=== PATIENT | female | born 1955 | race Caucasian/White ===

== ENCOUNTER 2023-07-09 09:48 | Outpatient (AMB) | payer OTHER, SELFPAY ==
--- NOTE | 2023-07-09 10:06 | MHC.OFFVIS ---
Intake Vital Signs 07/09/23 10:08 Height 5 ft 10 in Weight 148 lb BMI 21.2 Intake Visit Reasons: IMMUNOCHEMIST, general muscle pain Intake Note: Joss 67 yr old right hand dominant male presents today with his daughter Regina for his right shoulder. States he is having limited ROM and his pain is constant. This is affecting his daily activities. Also has pain in bilateral knees. No injury he can recall. Hx of triple bypass February 2023, daughter states patient muscle pain started 2 months after his surgery. Patient is diabetic. States he has cardiac therapy after surgery but not for his knees or shoulder. Allergies lisinopril Allergy (Mild, Verified 07/09/23 10:13) Cough Medication List - Last Reconciled 07/09/23 by Hodan Mandujano MD aspirin 81 mg PO DAILY atorvastatin 10 mg PO BEDTIME clopidogrel 75 mg PO DAILY gabapentin 100 mg PO BEDTIME metformin 500 mg PO DAILY metoprolol tartrate 25 mg PO BID semaglutide (Ozempic) 0.25 mg subcut QWEEK HPI HPI Comments History of Present Illness Details Patient was referred from [facility]. History of coronary bypass surgery 02/19/23. Two months, around mid April, after started having bilateral shoulder pain right worse than left, and bilateral knee pain. Notes also said bilateral upper and lower extremity aches. He has been referred to Rheumatology which is pending. And then referred to physiatry for further evaluation. Per daughter, says he was walking hunched over because of the pain, he was pointing today on right shoulder and right knee. Patient denies weakness. No drastic weight loss or atrophy. Swallowing not affected. New numbness on right 3rd-5th digits, can't make fist. Denies past history of DM neuropathy. Denies numbness on his feet. Hip pain but denies groin pain. Muscles on his buttocks. Denies back pain. History of lumbar fusion 2011. Denies neck pain. Possible morning stiffness. Per records, left knee ultrasound did not show DVT, positive Zuñiga cyst. Looks like they have started him on gabapentin, 300mg daily, without relief. They've done blood work - negaetive lyme; inflammatory markers high - given oral steroid burst which helped a bit. Daughter does not remember anything else being abnormal. Denies fever prior to onse of aches. No xrays done. Right handed, needs assistance now for feeding due to pain. Can't sleep. He is accompanied today by daughter Regina who provides history and helps translation. Other past medical history - DM, not on insulin, A1c 6.8; HTN; high cholesterol. Right shoulder surgery 2009 for arthritis. But he did not have pain prior to cardiac bypass. [facility] Social History (Updated 07/09/23 @ 10:13 by AALIYAH Plaza) Current occupational status: disabled Current occupation: right hand Review of Systems Const All systems reviewed & are unremarkable except as noted in HPI and below Physical Exam Vital Signs: BMI result Body Mass Index 21.2 Constitutional: Patient appears to be in no acute distress, well nourished and well developed. Patient was appropriately conversant and oriented. Good historian. MSK: Inspection reveals appropriate head and neck positioning. No pain with palpation over the neck musculature. Cervical ROM was full. Spurling's sign negative. Bilateral shoulder, elbow and wrist ROM WNL. No ligamentous laxity or crepitance. No increased effusion. No scapular winging. No atrophy. Tenderness along the proximal biceps insertion right side. Less tenderness on left side. Positive Norris sign on the right. Positive Speed sign on the right. Negative empty can sign. Tenderness on left PIP and MCP joints. No redness or joint enlargement or swelling. No specific abnormalities or instability found on inspection and palpation of the spine and extremities. No tenderness along cervical, thoracic, lumbar spinous processes, facets are paraspinals. No tenderness on the lateral hips or knees, no swelling or redness or warmth. Tender on posterior left knee. Negative calf tenderness. Strength is 5/5 in all muscle groups tested. No increased tone noted. Neurological: Mood appears normal, good affect, and appropriate for the circumstances. Neurologic examination of the upper and lower extremities was nonfocal with intact sensation, muscle stretch reflexes and without focal motor deficits. Wright?s negative bilaterally. Babinski was down going bilaterally. Clonus was negative. Gait is non-antalgic without loss of balance. Results Reviewed Results Reviewed: I reviewed records from the following: [facility] Assessment & Plan Assessment & Plan (1) Muscle pain: Code(s): M79.10 - Myalgia, unspecified site (2) Joint pain: Code(s): M25.50 - Pain in unspecified joint (3) Numbness: Code(s): R20.0 - Anesthesia of skin (4) Zuñiga's cyst of knee: Code(s): M71.20 - Synovial cyst of popliteal space [Zuñiga], unspecified knee Plan Sudden onset widespread muscle and joint pain, 2 months after cardiac surgery. Without true weakness or muscle atrophy. Right shoulder seems to be the worse. Exam shows tenderness along bilateral biceps proximal insertion. He reports tenderness on right 3rd to 5th digits. Denies any previous history of neuropathy from diabetes. No allodynia or tenderness or hypersensitivity along previous surgical site. We will work him up for inflammatory markers and CK level. We will check her LESLIE and RF as well. Will do bilateral shoulder, hand and hip x-rays today. We will schedule him for EMG to rule out neuropathy. Will help facilitate Rheumatology referral. Continue current dose of gabapentin for now. Assessment and plan discussed with patient, and patient was agreeable. All questions were answered thoroughly. Hodan Mandujano MD, SANJEEV Board Certified, [place] Board [employer] Physical Medicine and Rehabilitation (ABPMR) Board Certified, [place] Board of Electrodiagnostic Medicine (ABEM) Orders: Orders XR shoulder RT min 2V Today M25.50 - Pain in unspecified joint, M79.10 - Myalgia, unspecified site XR knee RT 3V Today M25.50 - Pain in unspecified joint, M79.10 - Myalgia, unspecified site XR hand RT min 3V Today M25.50 - Pain in unspecified joint, M79.10 - Myalgia, unspecified site NE electromyogram (EMG) Today M25.50 - Pain in unspecified joint, M79.10 - Myalgia, unspecified site, R20.0 - Anesthesia of skin Rheumatoid Factor Today M25.50 - Pain in unspecified joint, M79.10 - Myalgia, unspecified site, R20.0 - Anesthesia of skin Erythrocyte Sedimentation Rate Today M25.50 - Pain in unspecified joint, M79.10 - Myalgia, unspecified site, R20.0 - Anesthesia of skin XR shoulder LT min 2V Today M25.50 - Pain in unspecified joint, M79.10 - Myalgia, unspecified site XR knee LT 3V Today M25.50 - Pain in unspecified joint, M79.10 - Myalgia, unspecified site XR hand LT min 3V Today M25.50 - Pain in unspecified joint, M79.10 - Myalgia, unspecified site NE nerve conduction velocity Today M25.50 - Pain in unspecified joint, M79.10 - Myalgia, unspecified site, R20.0 - Anesthesia of skin LESLIE Reflex Titer and Pattern Today M25.50 - Pain in unspecified joint, M79.10 - Myalgia, unspecified site, R20.0 - Anesthesia of skin CK, Total+Isoenzymes, Serum Today M25.50 - Pain in unspecified joint, M79.10 - Myalgia, unspecified site, R20.0 - Anesthesia of skin CRP High Sensitivity Today M25.50 - Pain in unspecified joint, M79.10 - Myalgia, unspecified site, R20.0 - Anesthesia of skin Coding Level of Care Code New Pt Level 4 (48495) Diagnoses Muscle pain M79.10 Joint pain M25.50 Numbness R20.0 Zuñiga's cyst of knee M71.20
[2023-07-09 10:08] VITALS: BMI 21.2
== END 2023-07-09 10:44 | disposition home or self-care (01) ==
PROVIDERS: Visit Provider Physical Medicine & Rehabilitation
DX: M79.10 Myalgia, unspecified site (principal); M25.50 Pain in unspecified joint; R20.0 Anesthesia of skin; M71.22 Synovial cyst of popliteal space [Baker], left knee
CPT/HCPCS: 99204

== ENCOUNTER 2023-07-09 09:48 | Outpatient (REF) | payer OTHER, SELFPAY ==
--- NOTE | ~2023-07-09 | XR_ITS ---
EXAMINATION: XR SHOULDER, BILATERAL. XR KNEE, BILATERAL. XR HAND, BILATERAL. CLINICAL INFORMATION: Polyarticular pain COMPARISON: None. TECHNIQUE: AP and lateral views of each shoulder. 3 views of each knee. 3 views of each hand. FINDINGS: Right shoulder: No fracture or malalignment. Mild glenohumeral osteoarthritis. No suspicious bone lesion or soft tissue calcification. Left shoulder: No fracture or malalignment. Moderate glenohumeral and mild acromioclavicular osteoarthritis. No suspicious bone lesion or soft tissue calcification. Right knee: No fracture. Mild medial compartment osteoarthritis. No joint effusion. Left knee: No significant joint space narrowing. Faint meniscal chondrocalcinosis. Mild patellofemoral compartment osteoarthritis. There is a moderate joint effusion. Right hand: No fracture or malalignment. 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 Mild osteoarthritis of the 1st CMC joint, the 2nd and 3rd MCP joints, and the interphalangeal joints. No periarticular osteopenia, erosions, or suspicious soft tissue calcifications. Left hand: No fracture or malalignment. 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 Mild osteoarthritis of the 1st CMC joint, the 2nd and 3rd MCP joints, and the interphalangeal joints. No periarticular osteopenia, erosions, or suspicious soft tissue calcifications. XR/XR shoulder RT min 2V IMPRESSION: No acute abnormality of the shoulders, knees, or hands. Mild to moderate degenerative findings of both shoulders and both knees as described. There is a moderate left knee joint effusion. 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
--- NOTE | ~2023-07-09 | XR_ITS ---
EXAMINATION: XR SHOULDER, BILATERAL. XR KNEE, BILATERAL. XR HAND, BILATERAL. CLINICAL INFORMATION: Polyarticular pain COMPARISON: None. TECHNIQUE: AP and lateral views of each shoulder. 3 views of each knee. 3 views of each hand. FINDINGS: Right shoulder: No fracture or malalignment. Mild glenohumeral osteoarthritis. No suspicious bone lesion or soft tissue calcification. Left shoulder: No fracture or malalignment. Moderate glenohumeral and mild acromioclavicular osteoarthritis. No suspicious bone lesion or soft tissue calcification. Right knee: No fracture. Mild medial compartment osteoarthritis. No joint effusion. Left knee: No significant joint space narrowing. Faint meniscal chondrocalcinosis. Mild patellofemoral compartment osteoarthritis. There is a moderate joint effusion. Right hand: No fracture or malalignment. 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 Mild osteoarthritis of the 1st CMC joint, the 2nd and 3rd MCP joints, and the interphalangeal joints. No periarticular osteopenia, erosions, or suspicious soft tissue calcifications. Left hand: No fracture or malalignment. 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 Mild osteoarthritis of the 1st CMC joint, the 2nd and 3rd MCP joints, and the interphalangeal joints. No periarticular osteopenia, erosions, or suspicious soft tissue calcifications. XR/XR knee LT 3V IMPRESSION: No acute abnormality of the shoulders, knees, or hands. Mild to moderate degenerative findings of both shoulders and both knees as described. There is a moderate left knee joint effusion. 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
--- NOTE | ~2023-07-09 | XR_ITS ---
EXAMINATION: XR SHOULDER, BILATERAL. XR KNEE, BILATERAL. XR HAND, BILATERAL. CLINICAL INFORMATION: Polyarticular pain COMPARISON: None. TECHNIQUE: AP and lateral views of each shoulder. 3 views of each knee. 3 views of each hand. FINDINGS: Right shoulder: No fracture or malalignment. Mild glenohumeral osteoarthritis. No suspicious bone lesion or soft tissue calcification. Left shoulder: No fracture or malalignment. Moderate glenohumeral and mild acromioclavicular osteoarthritis. No suspicious bone lesion or soft tissue calcification. Right knee: No fracture. Mild medial compartment osteoarthritis. No joint effusion. Left knee: No significant joint space narrowing. Faint meniscal chondrocalcinosis. Mild patellofemoral compartment osteoarthritis. There is a moderate joint effusion. Right hand: No fracture or malalignment. 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 Mild osteoarthritis of the 1st CMC joint, the 2nd and 3rd MCP joints, and the interphalangeal joints. No periarticular osteopenia, erosions, or suspicious soft tissue calcifications. Left hand: No fracture or malalignment. 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 Mild osteoarthritis of the 1st CMC joint, the 2nd and 3rd MCP joints, and the interphalangeal joints. No periarticular osteopenia, erosions, or suspicious soft tissue calcifications. XR/XR shoulder LT min 2V IMPRESSION: No acute abnormality of the shoulders, knees, or hands. Mild to moderate degenerative findings of both shoulders and both knees as described. There is a moderate left knee joint effusion. 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
--- NOTE | ~2023-07-09 | XR_ITS ---
EXAMINATION: XR SHOULDER, BILATERAL. XR KNEE, BILATERAL. XR HAND, BILATERAL. CLINICAL INFORMATION: Polyarticular pain COMPARISON: None. TECHNIQUE: AP and lateral views of each shoulder. 3 views of each knee. 3 views of each hand. FINDINGS: Right shoulder: No fracture or malalignment. Mild glenohumeral osteoarthritis. No suspicious bone lesion or soft tissue calcification. Left shoulder: No fracture or malalignment. Moderate glenohumeral and mild acromioclavicular osteoarthritis. No suspicious bone lesion or soft tissue calcification. Right knee: No fracture. Mild medial compartment osteoarthritis. No joint effusion. Left knee: No significant joint space narrowing. Faint meniscal chondrocalcinosis. Mild patellofemoral compartment osteoarthritis. There is a moderate joint effusion. Right hand: No fracture or malalignment. 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 Mild osteoarthritis of the 1st CMC joint, the 2nd and 3rd MCP joints, and the interphalangeal joints. No periarticular osteopenia, erosions, or suspicious soft tissue calcifications. Left hand: No fracture or malalignment. 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 Mild osteoarthritis of the 1st CMC joint, the 2nd and 3rd MCP joints, and the interphalangeal joints. No periarticular osteopenia, erosions, or suspicious soft tissue calcifications. XR/XR hand LT min 3V IMPRESSION: No acute abnormality of the shoulders, knees, or hands. Mild to moderate degenerative findings of both shoulders and both knees as described. There is a moderate left knee joint effusion. 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
--- NOTE | ~2023-07-09 | XR_ITS ---
EXAMINATION: XR SHOULDER, BILATERAL. XR KNEE, BILATERAL. XR HAND, BILATERAL. CLINICAL INFORMATION: Polyarticular pain COMPARISON: None. TECHNIQUE: AP and lateral views of each shoulder. 3 views of each knee. 3 views of each hand. FINDINGS: Right shoulder: No fracture or malalignment. Mild glenohumeral osteoarthritis. No suspicious bone lesion or soft tissue calcification. Left shoulder: No fracture or malalignment. Moderate glenohumeral and mild acromioclavicular osteoarthritis. No suspicious bone lesion or soft tissue calcification. Right knee: No fracture. Mild medial compartment osteoarthritis. No joint effusion. Left knee: No significant joint space narrowing. Faint meniscal chondrocalcinosis. Mild patellofemoral compartment osteoarthritis. There is a moderate joint effusion. Right hand: No fracture or malalignment. 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 Mild osteoarthritis of the 1st CMC joint, the 2nd and 3rd MCP joints, and the interphalangeal joints. No periarticular osteopenia, erosions, or suspicious soft tissue calcifications. Left hand: No fracture or malalignment. 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 Mild osteoarthritis of the 1st CMC joint, the 2nd and 3rd MCP joints, and the interphalangeal joints. No periarticular osteopenia, erosions, or suspicious soft tissue calcifications. XR/XR knee RT 3V IMPRESSION: No acute abnormality of the shoulders, knees, or hands. Mild to moderate degenerative findings of both shoulders and both knees as described. There is a moderate left knee joint effusion. 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
--- NOTE | ~2023-07-09 | XR_ITS ---
EXAMINATION: XR SHOULDER, BILATERAL. XR KNEE, BILATERAL. XR HAND, BILATERAL. CLINICAL INFORMATION: Polyarticular pain COMPARISON: None. TECHNIQUE: AP and lateral views of each shoulder. 3 views of each knee. 3 views of each hand. FINDINGS: Right shoulder: No fracture or malalignment. Mild glenohumeral osteoarthritis. No suspicious bone lesion or soft tissue calcification. Left shoulder: No fracture or malalignment. Moderate glenohumeral and mild acromioclavicular osteoarthritis. No suspicious bone lesion or soft tissue calcification. Right knee: No fracture. Mild medial compartment osteoarthritis. No joint effusion. Left knee: No significant joint space narrowing. Faint meniscal chondrocalcinosis. Mild patellofemoral compartment osteoarthritis. There is a moderate joint effusion. Right hand: No fracture or malalignment. 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 Mild osteoarthritis of the 1st CMC joint, the 2nd and 3rd MCP joints, and the interphalangeal joints. No periarticular osteopenia, erosions, or suspicious soft tissue calcifications. Left hand: No fracture or malalignment. 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 Mild osteoarthritis of the 1st CMC joint, the 2nd and 3rd MCP joints, and the interphalangeal joints. No periarticular osteopenia, erosions, or suspicious soft tissue calcifications. XR/XR hand RT min 3V IMPRESSION: No acute abnormality of the shoulders, knees, or hands. Mild to moderate degenerative findings of both shoulders and both knees as described. There is a moderate left knee joint effusion. 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
== END 2023-07-09 09:49 | disposition home or self-care (01) ==
LOC: HO.HOSX 09:48
PROVIDERS: Visit Provider Physical Medicine & Rehabilitation
DX: M25.50 Pain in unspecified joint (principal); M79.10 Myalgia, unspecified site; R20.0 Anesthesia of skin
CPT/HCPCS: 73030; 73130; 73562

== ENCOUNTER 2023-07-09 11:21 | Outpatient (REF) | payer OTHER, SELFPAY ==
[2023-07-09 13:48] LABS: Rheumatoid Factor < 13.0 IU/mL (<15.0)
[2023-07-09 13:58] LABS: Erythrocyte Sedimentation Rate 86 MM/HR (0-20)
[2023-07-15 09:39] LABS: CRP High Sensitivity >10.0 mg/L
[2023-07-15 12:13] LABS: ANA Titer 2 1:40 titer; Anti Nuclear Antibody Screen POSITIVE (NEGATIVE); Anti Nuclear Antibody Titer 1:40 titer
[2023-07-16 20:58] LABS: CK-BB None Detected (None Detected); CK-MB 0 % (<5); CK-MM 68 % (95-100); Creatine Kinase,Total,Serum 31 U/L (29-143)
== END 2023-07-09 11:22 | disposition home or self-care (01) ==
LOC: HO.10HDL 11:21
PROVIDERS: Visit Provider Physical Medicine & Rehabilitation
DX: M25.50 Pain in unspecified joint (principal); M79.10 Myalgia, unspecified site; R20.0 Anesthesia of skin
CPT/HCPCS: 36415; 82552; 85652; 86038; 86039; 86141; 86431

== ENCOUNTER 2023-07-15 12:57 | Outpatient (REF) | payer OTHER, SELFPAY ==
--- NOTE | 2023-07-15 13:03 | EMG_ITS ---
Chief complaint: Numbness on right 1st to 3rd digits. Right shoulder and arm pain. Please see my notes for full history. Reason for referral: Evaluate for Carpal Tunnel Syndrome versus neuropathy Procedure done: Bilateral upper extremities NCS/EMG Precautions and/or limitations: None The limb temperature was monitored continuously and remained between 32-36 degrees C during the performance of the NCS. Nerve Conduction Studies Anti Sensory Summary Table ?Stim Site NR Onset (ms) Norm Onset (ms) Peak (ms) Norm Peak (ms) O-P Amp (?V) Norm O-P Amp Site1 Site2 Delta-0 (ms) Dist (cm) Stanford (m/s) Norm Stanford (m/s) Left Median Anti Sensory (2nd Digit) Wrist ? 3.3 3.8 <3.6 21.7 >10 Wrist 2nd Digit 3.3 14.0 42 Right Median Anti Sensory (2nd Digit) Wrist ? 3.1 3.8 <3.6 14.4 >10 Wrist 2nd Digit 3.1 14.0 45 Right Radial Anti Sensory (Thumb) Forearm ? 1.6 2.2 <3.1 20.8 Forearm Thumb 1.6 0.0 Left Ulnar Anti Sensory (5th Digit) Wrist ? 1.1 3.4 <3.7 17.3 >15.0 Wrist 5th Digit 1.1 14.0 127 Right Ulnar Anti Sensory (5th Digit) Wrist ? 2.9 3.4 <3.7 7.4 >15.0 Wrist 5th Digit 2.9 14.0 48 Motor Summary Table ?Stim Site NR Onset (ms) Norm Onset (ms) O-P Amp (mV) Norm O-P Amp iAmp (mV) Amp (1st) (%) Site1 Site2 Delta-0 (ms) Dist (cm) Stanford (m/s) Norm Stanford (m/s) Left Median Motor (Abd Poll Brev) Wrist ? 4.1 <3.9 3.8 >4.5 4.7 100.0 Elbow Wrist 3.2 24.0 75 >45 Elbow ? 7.3 3.8 4.5 100.0 Right Median Motor (Abd Poll Brev) Wrist ? 3.6 <3.9 4.3 >4.5 5.0 100.0 Elbow Wrist 3.8 22.0 58 >45 Elbow ? 7.4 4.1 4.8 95.3 Left Ulnar Motor (Abd Dig Minimi) Wrist ? 2.8 <3.0 8.8 >5 11.1 100.0 B Elbow Wrist 3.5 21.0 60 >45 B Elbow ? 6.3 8.1 10.4 92.0 A Elbow B Elbow 1.7 10.0 59 >45 A Elbow ? 8.0 7.4 9.8 84.1 Right Ulnar Motor (Abd Dig Minimi) Wrist ? 3.0 <3.0 6.6 >5 8.6 100.0 B Elbow Wrist 3.5 19.0 54 >45 B Elbow ? 6.5 5.3 7.2 80.3 A Elbow B Elbow 1.7 10.0 59 >45 A Elbow ? 8.2 6.0 8.3 90.9 EMG ?Side Muscle Nerve Root Ins Act Fibs Psw Amp Dur Poly Recrt Int Pat Comment Right 1stDorInt Ulnar C8-T1 Nml Nml Nml Nml Nml 0 Nml Complete Right FlexCarRad Median C6-7 Nml Nml Nml Nml Nml 0 Nml Complete Right Biceps Musculocut C5-6 Nml Nml Nml Nml Nml 0 Nml Complete Right Triceps Radial C6-7-8 Nml Nml Nml Nml Nml 0 Nml Complete Right Deltoid Axillary C5-6 Nml Nml Nml Nml Nml 0 Nml Complete Left 1stDorInt Ulnar C8-T1 Nml Nml Nml Nml Nml 0 Nml Complete Left FlexCarRad Median C6-7 Nml Nml Nml Nml Nml 0 Nml Complete Left Biceps Musculocut C5-6 Nml Nml Nml Nml Nml 0 Nml Complete Left Triceps Radial C6-7-8 Nml Nml Nml Nml Nml 0 Nml Complete Left Deltoid Axillary C5-6 Nml Nml Nml Nml Nml 0 Nml Complete FINDINGS: Right median motor nerve showed normal distal latency, small amplitude and normal conduction velocity. Left median motor nerve showed prolonged distal latency, small amplitude and normal conduction velocity. Bilateral median sensory nerves showed prolonged peak latency. All other nerves tested were within normal. Concentric needle EMG was performed in selected muscles of the bilateral upper extremities. Study did not reveal signs of electric abnormalities as shown in the table below. IMPRESSION: 1. This is an abnormal study. 2. 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 3. There is no electrodiagnostic evidence for ulnar neuropathy, brachial plexopathy, or cervical radiculopathy. Thank you for your kind referral. Hodan Mandujano MD, SANJEEV Board Certified, [place] Board [employer] and Rehabilitation (ABPMR) Board Certified, [place] Board of Electrodiagnostic Medicine (ABEM) [address] [id number] [facility]
== END 2023-07-15 12:58 | disposition home or self-care (01) ==
LOC: HO.NEURO 12:57
PROVIDERS: Visit Provider Physical Medicine & Rehabilitation
DX: R20.0 Anesthesia of skin (principal); M25.50 Pain in unspecified joint; M79.10 Myalgia, unspecified site
CPT/HCPCS: 95886; 95911

== ENCOUNTER → 2023-07-15 13:03 | Outpatient (BNV) | payer OTHER, SELFPAY | PROVIDERS: Visit Provider Physical Medicine & Rehabilitation | DX: G56.13 Other lesions of median nerve, bilateral upper limbs (principal); G56.03 Carpal tunnel syndrome, bilateral upper limbs | CPT/HCPCS: 95886; 95911 ==

== ENCOUNTER 2023-07-16 11:22 | Outpatient (AMB) | payer OTHER, SELFPAY ==
[2023-07-16 11:32] VITALS: BMI 21.2
--- NOTE | 2023-07-16 11:32 | A.OFFVIS_ITS ---
Intake Vital Signs 07/16/23 11:32 Height 5 ft 10 in Weight 148 lb BMI 21.2 Intake Visit Reasons: O/V rt shdr injection per RB Intake Note: Joss is a 67 year old male who presets today for a right shoulder injection. Allergies lisinopril Allergy (Mild, Verified 07/16/23 11:33) Cough Medication List - Last Reconciled 07/16/23 by Hodan Mandujano MD aspirin 81 mg PO DAILY atorvastatin 10 mg PO BEDTIME clopidogrel 75 mg PO DAILY gabapentin 100 mg PO BEDTIME metformin 500 mg PO DAILY metoprolol tartrate 25 mg PO BID semaglutide (Ozempic) 0.25 mg subcut QWEEK HPI HPI Comments History of Present Illness Details Scheduled right shoulder injection today. Saw him yesterday, EMG done. Also discussed results of labs and x-rays with patient and daughter. [facility] Medical History (Updated 07/16/23 @ 11:56 by Hodan Mandujano MD) DJD of right shoulder Social History Current occupational status: disabled Current occupation: right hand Physical Exam Vital Signs: BMI result Body Mass Index 21.2 Office Procedures Joint Injection/Drain Joint Injection/Drain Details: Consent was obtained. The distal, lateral, and posterior edges of the right acromion are palpated. Area is cleansed with betadine solution. A 25 gauge needle is inserted just inferior to the posterolateral edge of the acromion. The needle is directed toward the opposite nipple. A solution containing 40 mg Kenalog and 3 ml of 2% Lidocaine is injected. Patient tolerated procedure well without complications. Post-injection instructions given. Primary Site: right shoulder Injected: 40 mg of, Kenalog, with 3 mL of and other (2% lidocaine) Coding 63821 - Large joint Procedure code (CPT) selection complete Results Reviewed Results Reviewed: 07/16/23 11:31 Lidocaine HCl 2 % MPF [Xylocaine 2 % MPF] 5 ml .ROUTE .STK-MED ONE Triamcinolone Acetonide [Kenalog-40] 40 mg .ROUTE .STK-MED ONE Assessment & Plan Assessment & Plan (1) DJD of right shoulder: Code(s): M19.011 - Primary osteoarthritis, right shoulder Qualifiers: Osteoarthritis type: primary Qualified Code(s): M19.011 - Primary osteoarthritis, right shoulder Plan: Patient tolerated procedure well. Assessment and plan discussed with patient, and patient was agreeable. All questions were answered thoroughly. Follow-up in 6 weeks. Hodan Mandujano MD, SANJEEV Board Certified, [place] [employer] and [employer] (ABPMR) Board Certified, [place] [employer] Electrodiagnostic [employer] (ABEM) Orders: Orders AMB Joint Injection/Aspiration Today M19.011 - Primary osteoarthritis, right shoulder Coding Level of Care Code Procedure Only Diagnoses Primary osteoarthritis of right shoulder M19.011 Osteoarthritis type: primary CPT Codes Coding - 23528 Large joint: 50866 - Large joint ([id number])
== END 2023-07-16 11:50 | disposition home or self-care (01) ==
PROVIDERS: Visit Provider Physical Medicine & Rehabilitation
DX: M19.011 Primary osteoarthritis, right shoulder (principal)
CPT/HCPCS: 20610

== ENCOUNTER → 2023-07-16 11:22 | Outpatient (BNVA) | payer OTHER, SELFPAY | PROVIDERS: Visit Provider Physical Medicine & Rehabilitation | DX: M19.011 Primary osteoarthritis, right shoulder (principal) | CPT/HCPCS: 20610; J3301 ==

== ENCOUNTER 2023-07-21 07:47 | Outpatient (AMB) | payer OTHER, MEDICARE, SELFPAY ==
--- NOTE | 2023-07-21 07:50 | A.OFFVIS_ITS ---
Intake Vital Signs 3 07/21/23 07:51 Height 5 ft 10 in Weight 140 lb 14.006 oz BMI 20.2 BP 110/60 Blood Pressure Location Rt brachial Position Sitting Pulse 94 Pulse Source Pulse Oximeter Temp 97.7 F Temp Source Skin Pulse Oximetry (%) 99 Oxygen Delivery Method Room Air Intake Visit Reasons: Myalgia Intake Note: New patient presents to office today with concern of myalgias. Watch Train Assembler Required: Yes Watch Train Assembler Language: Ethiopian Watch Train Assembler Name: Regina Information Interpreted: non-clinical & clinical Accompanied by: Daughter Allergies lisinopril Allergy (Mild, Verified 07/21/23 07:50) Cough Medication List - Last Reconciled 07/21/23 by Jair Knowles MD aspirin 81 mg PO DAILY atorvastatin 40 mg every other day due to joint pain orally daily; capsaicin 0.1% appl topical clopidogrel 75 mg PO DAILY fluticasone propionate 50 mcg/actuation 1 spray intranasal DAILY gabapentin 300 mg PO DAILY metformin 1,000 mg PO BID metoprolol succinate ER 12.5 mg PO BID semaglutide (Ozempic) mg subcut HPI HPI Comments 2 History of Present Illness0 Details The patient presents with his daughter who helps translate. In February the patient underwent triple bypass surgery for his coronary artery disease. That went well but in early April he developed widespread pains. These included pains in the shoulders, hands, wrists, hips, and knees. There is about 3 hours of morning stiffness and that makes it difficult to get up out of bed. He notes swelling in the fingers and the wrists. He had an ultrasound of the leg documented a right popliteal cyst. Last week he had nerve conduction studies showing bilateral moderately severe carpal tunnel syndrome. He takes acetaminophen for symptoms without much improvement. He has been advised against the use of NSAIDs by Cardiology. There was a brief course of prednisone in the summer but he does not recall if it improved things much. He did recently receive a right shoulder corticosteroid injection. After 3 days he did have some overall improvement in his shoulder and other joints but symptoms reverted back to baseline again in another 24 hours. He has had some blood work in this laboratory as well as at [place]. [facility] Medical History (Updated 07/21/23 @ 08:56 by Jair Knowles MD) Type 2 diabetes mellitus without complication Hyperlipidemia, unspecified Arthritis Carpal tunnel syndrome DJD of right shoulder Surgical History (Updated 07/21/23 @ 08:01 by CHASITY Mosqueda) S/P triple vessel bypass Family History (Updated 07/21/23 @ 08:00 by CHASITY Mosqueda) Daughter Arthritis Social History (Updated 07/21/23 @ 08:00 by CHASITY Mosqueda) Household Members: Spouse Alcohol intake: former Patient Tobacco Use Status: Former Tobacco user Current occupational status: disabled Current occupation: right hand Review of Systems Const Details: Some fatigue and low stamina. He has been losing weight ever since he was started on Ozempic for his diabetes. Relates about a 60 lb weight loss over last year. Negative for appetite change, weight change, fever, chills, malaise Eyes Details: Negative for vision change, dry eyes,headaches and dizziness ENT Details: Negative for hearing change, tinnitus, oral ulcer, nose bleeds and oral dryness. Card Details: His bypass surgery went uneventfully and his wounds have healed. Negative chest pain, edema and syncope Resp Details: Negative for SOB, cough and wheezing GI Details: Negative indigestion/heartburn, nausea, abdominal pain, bowel changes, diarrhea, constipation and bloody stool. Details: Negative for dysuria, hematuria, nocturia, decreased force/flow and genital discharge Skin/Breast Details: He was treated for years so with some injections by a concrete crusher loader operator for problems with his fingernails. This was also associated with some scaly itchy rash in the hands. The daughter says he was told it was eczema and not psoriasis. He stopped receiving them as he did not see any improvement in his fingernails. Presently there is no rash. Negative for itching, rash, hives, Raynaud's symptoms, sun sensitivity, and skin cancer Neuro Details: There is some persistent numbness he believes in the fingertips. Negative for epilepsy, palsy, stroke, changes in speech, and weakness Psych Details: Negative for anxiety, depression and stress Endo Details: The daughter says the last A1c was 6.5. He has had occasional episodes of hypoglycemia but none in recent months. Negative for polyuria and polydypsia Angelo/Lymph Details: Negative for excessive bruising or bleeding. Physical Exam Vital Signs: Last Vital Signs Temp 97.7 F 07/21/23 07:51 Pulse 94 07/21/23 07:51 BP 110/60 07/21/23 07:51 Pulse Ox 99 07/21/23 07:51 Oxygen Delivery Method Room Air 07/21/23 07:51 BMI result Body Mass Index 20.2 APPEARANCE: Patient in no acute distress EYES no redness, pupils equal and reactive to light, eyelids normal. No temporal artery tenderness, redness or swelling. EARS: External ear normal, canal clear and tympanic membrane normal. NOSE/SINUS: Airflow through both nares, no nasal discharge, no bleeding THROAT: Oral mucosa moist, no ulcerations NECK: No thyromegaly or masses, no adenopathy, trachea midline. HEART: Regulrar rhythm, S1-S2 heard, no murmurs, rubs or gallops. LUNG: Clear to percussion and auscultation ABD: Normal bowel sounds, no organomegaly, masses or tenderness. EXTREMITIES: No edema, no calf tenderness, normal peripheral pulses. NEURO: Oriented and alert x3. No focal weakness. Reflexes symmetric. Gait normal. Questionable decreased sensation over the fingertips. SKIN: No inflammatory or neoplastic lesions. Many of the fingernail seem to be atrophic or missing. There is no tenderness in the fingernails. No objective signs of Raynaud's disease. The toenails are worse with multiple subungual deposits and dystrophy of the fingernails. These are not tender. Photographs of the nails: JOINT EXAM:.?? Cervical Spine:.? Full range of motion with mild discomfort. No tenderness. Thoracic Spine:.? No scoliosis.? No tenderness on palpation. Lumbar Spine:.? Alignment normal.? Full range of motion without pain, no tenderness. Chest Wall:.? There is a well-healed sternotomy scar. No areas of tenderness. The skin is intact. No increased warmth or erythema. Hands: Right: There is mild swelling and tenderness of the 1st 3 MCPs. There is no triggering. I do not detect sensory loss or thenar atrophy. There is slight tenderness at the base of the thumb without swelling. There is nontender bony enlargement at the thumb IP in all the PIP joints.? Left: There is tenderness and maybe some slight swelling at the 2nd 3rd MCP joints. There is nontender bony enlargement at the thumb IP in all the PIP joints. There is no thenar atrophy. There may be some decreased sensation of the 2nd and 3rd fingertips. No flexor tendon trigger Wrists: Right: There is mild pain with flexion extension at 45 degrees. There is soft tissue swelling and mild to moderate tenderness without redness or warmth. Left: Mild pain with flexion extension at 60 degrees. There is some slight swelling and mild to moderate tenderness without redness or warmth. Elbows:. Normal range of motion with slight pains at the extremes of normal flexion or extension. There is slight tenderness over the joint space without swelling, increased warmth or erythema. Shoulders:.? Right: Moderate pain with abduction at 60 degrees. He is limited in abduction to about 75-80 degrees. There is [id number] tenderness anteriorly, posteriorly, and in the subacromial region. There is no swelling or adenopathy. Left: Mild pain with abduction 150 degrees or with extremes of normal internal or external rotation. Mild anterior and posterior tenderness without swelling, weakness or adenopathy. Hips: Right: Slight buttock pain with extremes of normal internal or external rotation. No groin pain with motion. Left: There is mild lateral and buttock pain with abduction at 15 degrees or any degree of internal external rotation. No groin pain with motion. Hip bursa:.? Mild left trochanteric tenderness. Knees:.??Right: There is slight patellofemoral crepitus and mild pain with extremes of full extension. There is some mild medial tenderness and popliteal fullness with slight popliteal tenderness. No effusion anteriorly, no redness or warmth. Left: Mild patellofemoral crepitus and pain with full extension. There is minimal medial tenderness without redness or effusion. Ankles:.? Normal pain-free range of motion without tenderness, swelling, increased warmth or erythema. Feet:.? Normal pain-free range of motion without tenderness, swelling, increased warmth or erythema. Tender points:.? No tenderness to digital palpation at the occiput, trapezius, second rib, lateral epicondyle, knees, greater trochanter and gluteal area bilaterally. ? Results Reviewed Results Reviewed: Laboratory Tests 07/09/23 11:30 ESR 86 H Total Creatine Kinase 31 CK-MM (CK-3) 68 L C-React Prot High Sens >10.0 H LESLIE Titer 1:40 H Lab work from [place]: May 18: ESR 61, creatinine 0.84, transaminases normal, uric acid 4.4, Lyme disease antibody negative, rheumatoid factor negative, LESLIE negative. 06/04/2023: Babesia antibodies negative, Ehrlichia antibodies negative, HGE antibodies negative [facility] [address] [place] [address] Drive [address] [place] [address] XRay Report Signed Patient: Joss Bernard MR#: [id number] : 1955 Acct:[id number] Age/Sex: 67 / F ADM Date: 07/09/[address]: Hodna Mandujano MD Ordering Physician: Hodan Culp Date of Service: 07/09/23 Procedure(s): XR shoulder RT min 2V Accession Number(s): [id number] cc: Physician,Unknown ; Hodan Car EXAMINATION: XR SHOULDER, BILATERAL. XR KNEE, BILATERAL. XR HAND, BILATERAL. CLINICAL INFORMATION: Polyarticular pain COMPARISON: None. TECHNIQUE: AP and lateral views of each shoulder. 3 views of each knee. 3 views of each hand. FINDINGS: Right shoulder: No fracture or malalignment. Mild glenohumeral osteoarthritis. No suspicious bone lesion or soft tissue calcification. Left shoulder: No fracture or malalignment. Moderate glenohumeral and mild acromioclavicular osteoarthritis. No suspicious bone lesion or soft tissue calcification. Right knee: No fracture. Mild medial compartment osteoarthritis. No joint effusion. Left knee: No significant joint space narrowing. Faint meniscal chondrocalcinosis. Mild patellofemoral compartment osteoarthritis. There is a moderate joint effusion. Right hand: No fracture or malalignment. 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 Mild osteoarthritis of the 1st CMC joint, the 2nd and 3rd MCP joints, and the interphalangeal joints. No periarticular osteopenia, erosions, or suspicious soft tissue calcifications. Left hand: No fracture or malalignment. 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 Mild osteoarthritis of the 1st CMC joint, the 2nd and 3rd MCP joints, and the interphalangeal joints. No periarticular osteopenia, erosions, or suspicious soft tissue calcifications. XR/XR shoulder RT min 2V IMPRESSION: No acute abnormality of the shoulders, knees, or hands. Mild to moderate degenerative findings of both shoulders and both knees as described. There is a moderate left knee joint effusion. 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 Dictated By: Hema Bryant MD Assessment & Plan Assessment & Plan (1) Joint pain: Code(s): M25.50 - Pain in unspecified joint (2) Wrist pain, chronic: Code(s): M25.539 - Pain in unspecified wrist; G89.29 - Other chronic pain (3) Bilateral hand pain: Code(s): M79.641 - Pain in right hand; M79.642 - Pain in left hand (4) Hip pain, bilateral: Code(s): M25.551 - Pain in right hip; M25.552 - Pain in left hip (5) LESLIE positive: Code(s): R76.8 - Other specified abnormal immunological findings in serum (6) Inflammatory arthritis: Code(s): M19.90 - Unspecified osteoarthritis, unspecified site Plan The patient has a relatively symmetric inflammatory arthritis involving the hands, shoulders, wrists, and knees. The the carpal tunnel symptoms are likely secondary to his synovitis at the wrists. Similarly the Zuñiga cyst in the right knee is likely due to synovitis in the right knee. The rheumatoid factor is negative. The LESLIE was positive at our lab but negative at [place]. Uric acid and Lyme disease antibodies were negative. This looks like early rheumatoid arthritis. The nail disease could be due to psoriasis but the changes are somewhat atypical and I do not see any psoriasis. I am going to check CCP antibody and recheck his inflammatory markers, Lyme antibody, the CBC, Chem panel, hepatitis serologies and TB testing. I will also check anti DNA and anti VESTA since he has a positive LESLIE. We will start him on some prednisone at 10 b.i.d. for a week and then 5 b.i.d. after that. He will call us if symptoms are not tolerable at the lower dose of prednisone. We would aim to add a DMARD at some point in the next week or 2. We will have him back in 2 weeks to discuss that. Orders: Orders 2 Comprehensive Met. Panel Today M79.641 - Pain in right hand, M79.642 - Pain in left hand Erythrocyte Sedimentation Rate Today M79.641 - Pain in right hand, M79.642 - Pain in left hand Cyclic Citrullinated Peptide Today M79.641 - Pain in right hand, M79.642 - Pain in left hand Hepatitis A,B,C Profile Today Z79.899 - Other hearing healthcare practitioner (current) drug therapy Anti Extractable Nuclear Ag Today R76.8 - Other specified abnormal immunological findings in serum Complete Blood Count Auto Diff Today M79.641 - Pain in right hand, M79.642 - Pain in left hand C Reactive Protein Today M79.641 - Pain in right hand, M79.642 - Pain in left hand Creatine Kinase Total Today M79.641 - Pain in right hand, M79.642 - Pain in left hand Protein Creatinine Ratio, Ur Today M79.641 - Pain in right hand, M79.642 - Pain in left hand Lyme IgG/IgM w/reflex to WB Today M79.641 - Pain in right hand, M79.642 - Pain in left hand T Spot TB Today Z79.899 - Other intermediate (current) drug therapy Anti DNA DS Antibody Today R76.8 - Other specified abnormal immunological findings in serum Medications: New 2 prednisone two tab twice a day for a week, the one tab twice a day 75 tabs 2RF M19.90 - Unspecified osteoarthritis, unspecified site Coding Level of Care Code New Pt Level 4 (92914) Diagnoses Joint pain M25.50 Wrist pain, chronic M25.539; G89.29 Bilateral hand pain M79.641; M79.642 Hip pain, bilateral M25.551; M25.552 LESLIE positive R76.8 Inflammatory arthritis M19.90
[2023-07-21 07:51] VITALS: BP 110/60; PULSE 94; TEMP 36.5; O2SAT 99; BMI 20.2
== END 2023-07-21 09:00 | disposition home or self-care (01) ==
PROVIDERS: Visit Provider Internal Medicine Rheumatology
DX: M25.50 Pain in unspecified joint (principal); M25.539 Pain in unspecified wrist; G89.29 Other chronic pain; M79.641 Pain in right hand; M79.642 Pain in left hand; M25.551 Pain in right hip; M25.552 Pain in left hip; R76.8 Other specified abnormal immunological findings in serum; M19.90 Unspecified osteoarthritis, unspecified site
CPT/HCPCS: 99204

== ENCOUNTER → 2023-07-21 07:47 | Outpatient (BNVA) | payer OTHER, MEDICARE, SELFPAY | PROVIDERS: Visit Provider Internal Medicine Rheumatology ==

== ENCOUNTER 2023-07-21 09:24 | Outpatient (REF) | payer OTHER, MEDICARE, SELFPAY ==
[2023-07-21 11:03] LABS: Creatinine Urine 202.93 mg/dL; Protein/Creatinine Ratio, Ur 0.07 (<0.2); Total Protein Urine Random 15 mg/dL (<12)
[2023-07-21 11:03] LABS: MANUAL DIFF FLAG NO
[2023-07-21 11:04] LABS: Basophils Percent Auto 0.4 % (0-2); Eosinophils Absolute Auto 0.1 X10*3/uL (0.0-0.4); Eosinophils Percent Auto 1.2 % (0-4); Hematocrit 38.1 % (42.0-52.0); Hemoglobin 12.2 g/dl (14.0-18.0); Imm Gran Abs Auto 0.06 X10*3/uL (0.00-0.03); Imm Gran Pct Auto 0.6 % (0.0-0.4); Lymphocytes Absolute Auto 1.1 X10*3/uL (1.2-4.9); Lymphocytes Percent Auto 11.6 % (20-40); Mean Corpuscular Volume 78.1 fL (80.0-98.0); Mean Platelet Volume 10.3 fL (9.4-12.4); Monocytes Absolute Auto 0.9 X10*3/uL (0.1-1.2); Neutrophils Absolute Auto 7.3 x10*3/uL (2.0-8.3); Neutrophils Percent Auto 77.2 % (45-73); Platelet Count 319 X10*3/uL (160-400); Red Blood Count 4.88 X10*6/uL (4.60-5.80); Red Cell Distribution Width 15.9 % (11.0-16.0); White Blood Count 9.5 X10*3/uL (4.8-10.8)
[2023-07-21 11:42] LABS: Alanine Aminotransferase 18 U/L (0-40); Alkaline Phosphatase 66 U/L (39-117); Anion Gap 15 (12-20); Aspartate Amino Transferase 15 U/L (5-37); Bilirubin Total 0.3 mg/dL (0.0-1.0); Blood Urea Nitrogen 18 mg/dL (9-16); C Reactive Protein 1.52 mg/dL (< or = 0.50); Calcium 10.6 mg/dL (8.4-10.2); Carbon Dioxide 24 mmol/L (22-29); Chloride 99 mmol/L (96-108); Estimated Glomerular Filt Rate > 60; Glucose Random 126 mg/dL (60-115); Potassium 4.3 mmol/L (3.3-5.1); Sodium 134 mmol/L (135-145); Total Protein 7.7 g/dL (6.5-8.0)
[2023-07-21 12:00] LABS: Erythrocyte Sedimentation Rate 70 MM/HR (0-15); HBS Num1 > 1000.00 mIU/mL (0-7.99); HBc Num1 6.52 S/CO (0.00-0.79); HBsAGNum1 0.35 S/CO (0.00-0.99); Hepatitis A Antibody IgM 0.37 Index (0-0.79); Hepatitis B Surface Antigen Negative (Negative); ~HepC Num1 0.13 S/CO (0.00-0.79); ~Hepatitis A Antibody IgM Nonreactive (Nonreactive); ~Hepatitis B Surface Antibody REACTIVE (Nonreactive); ~Hepatitis C Antibody Nonreactive (Nonreactive)
[2023-07-21 13:40] LABS: HBc Num3 6.79 S/CO; Hepatitis B Core Antibody Reactive (Nonreactive)
[2023-07-23 05:43] LABS: Lyme Abs Screen <0.90 index
[2023-07-23 15:42] LABS: Cyclic Citrullinated Peptide <16 UNITS
[2023-07-23 17:04] LABS: TS Negative Control Passed; TS Panel A 0; TS Panel B 0; TS Positive Control Passed; TSpotTB Negative (Negative)
[2023-07-23 17:59] LABS: Anti DNA DS Antibody <1 IU/mL; SM/Ribonucleoprotein Ab <1.0 NEG AI (<1.0 NEG); Smith Protein <1.0 NEG AI (<1.0 NEG)
== END 2023-07-21 09:25 | disposition home or self-care (01) ==
LOC: HO.10HDL 09:24
PROVIDERS: Visit Provider Internal Medicine Rheumatology
DX: R76.8 Other specified abnormal immunological findings in serum (principal); M79.641 Pain in right hand; M79.642 Pain in left hand; Z79.899 Other long term (current) drug therapy
CPT/HCPCS: 36415; 80053; 82550; 82570; 84156; 85025; 85652; 86140; 86200; 86225; 86235; 86481; 86617; 86618; 86704; 86706; 86709; 86803; 87340

== ENCOUNTER 2023-08-13 09:30 | Outpatient (AMB) | payer OTHER, MEDICARE, SELFPAY ==
[2023-08-13 09:32] VITALS: BP 108/70; PULSE 75; TEMP 36.7; O2SAT 97; BMI 21.1
--- NOTE | 2023-08-13 09:32 | MHC.OFFVIS ---
Intake Vital Signs 08/13/23 09:32 Height 5 ft 10 in Weight 147 lb 4.301 oz BMI 21.1 BP 108/70 Blood Pressure Location Lt brachial Position Sitting Pulse 75 Pulse Source Pulse Oximeter Temp 98.1 F Temp Source Skin Pulse Oximetry (%) 97 Oxygen Delivery Method Room Air Intake Visit Reasons: ra Intake Note: Patient presents today to discuss adding DMARD. Reports taking prednisone 5 BID which has not been as effective for the last week. 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 Accompanied by: Daughter Allergies lisinopril Allergy (Mild, Verified 07/21/23 07:50) Cough Medication List - Last Reconciled 08/13/23 by Jair Knowles MD aspirin 81 mg PO DAILY atorvastatin 40 mg every other day due to joint pain orally daily; capsaicin 0.1% appl topical clopidogrel 75 mg PO DAILY fluticasone propionate 50 mcg/actuation 1 spray intranasal DAILY gabapentin 300 mg PO DAILY metformin 1,000 mg PO BID metoprolol succinate ER 12.5 mg PO BID prednisone 5 mg PO BID semaglutide (Ozempic) mg subcut HPI HPI Comments History of Present Illness Details The patient returns for evaluation of his rheumatoid arthritis. He remains on prednisone 5 mg twice a day. His daughter translates for us during today's visit. The patient did have significant improvement at 10 mg b.i.d. prednisone although some of his symptoms have started to come back in the last week at 5 mg b.i.d.. The patient has pain across the MCP and PIP regions and the right greater than the left shoulder. He notes a blood sugars a bit higher, up to 140 on a fasting basis. [facility] Medical History (Updated 08/13/23 @ 16:14 by Jair Knowles MD) Type 2 diabetes mellitus without complication Hyperlipidemia, unspecified Arthritis Carpal tunnel syndrome DJD of right shoulder Surgical History S/P triple vessel bypass Family History Daughter Arthritis 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 Const Details: Negative for appetite change, weight change, fever, chills, malaise and fatigue Eyes Details: Occasional blurred vision. Negative for dry eyes,headaches and dizziness Card Details: Negative chest pain, edema and syncope Resp Details: Negative for SOB, cough and wheezing GI Details: Negative indigestion/heartburn, nausea, abdominal pain, bowel changes, diarrhea, constipation and bloody stool. Details: Negative for dysuria, hematuria, nocturia, decreased force/flow and genital discharge Skin/Breast Details: Negative for itching, rash, hives, Raynaud's symptoms, sun sensitivity, and skin cancer Endo Details: Fasting sugar running in the 140s. Negative for polyuria and polydypsia Angelo/Lymph Details: Negative for excessive bruising or bleeding. Physical Exam Vital Signs: Last Vital Signs Temp 98.1 F 08/13/23 09:32 Pulse 75 08/13/23 09:32 BP 108/70 08/13/23 09:32 Pulse Ox 97 08/13/23 09:32 Oxygen Delivery Method Room Air 08/13/23 09:32 BMI result Body Mass Index 21.1 APPEARANCE: Patient in no acute distress EYES no redness, pupils equal and reactive to light, eyelids normal Cervical Spine:.? Full range of motion with mild discomfort. No tenderness. Thoracic Spine:.? No scoliosis.? No tenderness on palpation. Lumbar Spine:.? Alignment normal.? Full range of motion without pain, no tenderness. Chest Wall:.? There is a well-healed sternotomy scar. No areas of tenderness. The skin is intact. No increased warmth or erythema. Hands: Right: There is mild swelling and tenderness of the 1st 3 MCPs. There is no triggering. I do not detect sensory loss or thenar atrophy. There is slight tenderness at the base of the thumb without swelling. There is nontender bony enlargement at the thumb IP. There is some bony enlargement and mild tenderness at the 2nd 3rd PIP joints.? Left: There is mild swelling at the 1st 3 MCP joints and the 1st has slight tenderness. There is nontender bony enlargement at the thumb IP and in all the PIP joints. There is no thenar atrophy. There may be some decreased sensation of the 2nd and 3rd fingertips. No flexor tendon trigger Wrists: Right: There is no pain with flexion extension at 75 degrees. There is no swelling or tenderness. Left: Mild pain with flexion extension at 75 degrees. There is some slight swelling and mild tenderness without redness or warmth. Elbows:. Normal range of motion with no pain at the extremes of normal flexion or extension. There is slight tenderness over the joint space without swelling, increased warmth or erythema. Shoulders:.? Right: Mild to moderate pain with abduction at 135 degrees. There is similar discomfort with extremes of internal or external rotation with mild anterior and posterior tenderness. There is no swelling or adenopathy Left: Mild for discomfort with extremes of range of motion with some minimal anterior tenderness. No swelling, weakness or adenopathy. Hips: Right: Slight buttock pain with extremes of normal internal or external rotation. No groin pain with motion. Left: There is mild lateral and buttock pain with abduction at 15 degrees or any degree of internal external rotation. No groin pain with motion. Hip bursa:.? Mild left trochanteric tenderness. Knees:.??Right: There is slight patellofemoral crepitus and no pain with extremes of full extension. There is some mild medial tenderness and popliteal fullness with slight popliteal tenderness. No effusion anteriorly, no redness or warmth. Left: Mild patellofemoral crepitus and no pain with extremes of motion. There is no tenderness, redness or effusion. Ankles:.? Normal pain-free range of motion without tenderness, swelling, increased warmth or erythema. Feet:.? Normal pain-free range of motion without tenderness, swelling, increased warmth or erythema. Tender points: No tenderness to digital palpation at the occiput, trapezius, second rib, lateral epicondyle, knees, greater trochanter and gluteal area bilaterally. ? 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 However on exam there is still a handful of swollen and tender joints. I think he certainly needs to go on a DMARD. The blood work looked good with respect LFTs, hepatitis serologies and T spot testing. So therefore I think we should put on methotrexate 15 mg weekly. This will be with folic acid 1 mg daily. He probably could be a bit more comfortable with more prednisone but given the rise in the blood sugar I am reluctant to add any more prednisone unless we really need to. I reviewed with him the RA diagnosis and gave some some information on met rheumatoid arthritis and methotrexate to review. We discussed the methotrexate side effects and ask him to call us with any questions or problems. He was told that the drug could take months to work but that we needed to get going with the both to improve his symptoms in the short term and to avoid potential joint destruction in the future. Questions were answered. I will see him back in about fiber 6 weeks. We will ask him to get lab work before that visit to monitor his methotrexate. 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) drug therapy Complete Blood Count Auto Diff Today M06.00 - Rheumatoid arthritis without rheumatoid factor, unspecified site, Z79.899 - Other intermodal owner operator truck driver (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) drug therapy Creatinine Today M06.00 - Rheumatoid arthritis without rheumatoid factor, unspecified site, Z79.899 - Other intermodal owner operator truck driver (current) drug therapy Medications: New prednisone 5 mg PO BID 60 tabs 2RF M19.90 - Unspecified osteoarthritis, unspecified site folic acid 1 mg PO DAILY 30 tabs 6RF M06.00 - Rheumatoid arthritis without rheumatoid factor, unspecified site methotrexate sodium 15 mg (6 x 2.5 mg) PO QWEEK 24 tabs 2RF M06.00 - Rheumatoid arthritis without rheumatoid factor, unspecified site Coding Level of Care Code Est Pt Level 4 (79801) Diagnoses [facility] use of drug Z79.899 Seronegative rheumatoid arthritis M06.00
== END 2023-08-13 10:42 | disposition home or self-care (01) ==
PROVIDERS: Visit Provider Internal Medicine Rheumatology
DX: Z79.899 Other long term (current) drug therapy (principal); M06.00 Rheumatoid arthritis without rheumatoid factor, unspecified site
CPT/HCPCS: 99214

== ENCOUNTER → 2023-08-13 09:30 | Outpatient (BNVA) | payer OTHER, MEDICARE, SELFPAY | PROVIDERS: Visit Provider Internal Medicine Rheumatology | DX: M06.00 Rheumatoid arthritis without rheumatoid factor, unspecified site (principal); Z79.899 Other long term (current) drug therapy | CPT/HCPCS: 99212 ==

== ENCOUNTER 2023-08-27 10:07 | Outpatient (AMB) | payer OTHER, SELFPAY ==
--- NOTE | 2023-08-27 10:14 | A.OFFVIS_ITS ---
Intake Vital Signs 08/27/23 10:17 Height 5 ft 10 in Weight 147 lb BMI 21.1 Intake Visit Reasons: 6 weeks f/up/rt shdr Intake Note: Joss 68 yr old male presents today s/p right shoulder injection from 07/16/23. States injection help relief his pain. States at times he feels grinding in his shoulder and shoulder blades. States his ROM has improved. Allergies lisinopril Allergy (Mild, Verified 08/27/23 10:17) Cough HPI HPI Comments History of Present Illness Details Patient was referred from [facility]. History of coronary bypass surgery 02/19/23. Two months, around mid April, after started having bilateral shoulder pain right worse than left, and bilateral knee pain. Notes also said bilateral upper and lower extremity aches. He has been referred to Rheumatology which is pending. And then referred to physiatry for further evaluation. Per daughter, says he was walking hunched over because of the pain, he was pointing today on right shoulder and right knee. Patient denies weakness. No drastic weight loss or atrophy. Swallowing not affected. New numbness on right 3rd-5th digits, can't make fist. Denies past history of DM neuropathy. Denies numbness on his feet. Hip pain but denies groin pain. Muscles on his buttocks. Denies back pain. History of lumbar fusion 2011. Denies neck pain. Possible morning stiffness. Per records, left knee ultrasound did not show DVT, positive Zuñiga cyst. Looks like they have started him on gabapentin, 300mg daily, without relief. They've done blood work - negaetive lyme; inflammatory markers high - given oral steroid burst which helped a bit. Daughter does not remember anything else being abnormal. Denies fever prior to onse of aches. No xrays done. Right handed, needs assistance now for feeding due to pain. Can't sleep. He was accompanied today by daughter Regina who provided history and help with translation. Other past medical history - DM, not on insulin, A1c 6.8; HTN; high cholesterol. Right shoulder surgery 2009 for arthritis. But he did not have pain prior to cardiac bypass. Since I last saw him, he has been seen by Rheumatology Dr. Knowles: Seronegative rheumatoid arthritis with some improvement with the addition of the prednisone. However on exam there is still a handful of swollen and tender joints. I think he certainly needs to go on a DMARD. The blood work looked good with respect LFTs, hepatitis serologies and T spot testing. So therefore I think we should put on methotrexate 15 mg weekly. This will be with folic acid 1 mg daily. He probably could be a bit more comfortable with more prednisone but given the rise in the blood sugar I am reluctant to add any more prednisone unless we really need to. Daughter reports he feels better overall with medications. But blood sugar has increased with prednisone, making his vision blurry. Shoulder right injection done by me 07/16/23 -did not check if blood sugar was high after. Helped but feels bone and bone grinding. ROM is improved. EMG done by me: IMPRESSION: 1. This is an abnormal study. 2. 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 3. There is no electrodiagnostic evidenc e for ulnar neuropathy, brachial plexopathy, or cervical radiculopathy. Says hands are stiff but denies numbness. 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 Patient was appropriately conversant and oriented. Good historian. MSK: Inspection reveals appropriate head and neck positioning. Cervical ROM was full. Spurling's sign negative. Bilateral shoulder, elbow and wrist ROM WNL. No ligamentous laxity or crepitance. No increased effusion. No scapular winging. No atrophy. No subacromial tenderness. No intrinsic hand weakness. Right APB slighly flat. Strength is 5/5 in all muscle groups tested. No increased tone noted. Neurological: Mood appears normal, good affect, and appropriate for the circumstances. Neurologic examination of the upper and lower extremities was nonfocal with intact sensation, muscle stretch reflexes and without focal motor deficits. Wright?s negative bilaterally. Gait is non-antalgic without loss of balance. Results Reviewed Results Reviewed: EMG IMPRESSION: 1. This is an abnormal study. 2. 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 3. There is no electrodiagnostic evidence for ulnar neuropathy, brachial plexopathy, or cervical radiculopathy. Assessment & Plan Assessment & Plan (1) Seronegative rheumatoid arthritis: Code(s): M06.00 - Rheumatoid arthritis without rheumatoid factor, unspecified site Plan: Continue to follow with Rheumatology. Suggested to daughter to inform them of blood sugars being high and blurry vision related to taking prednisone. (2) Carpal tunnel syndrome: Code(s): G56.00 - Carpal tunnel syndrome, unspecified upper limb Qualifiers: Laterality: bilateral Qualified Code(s): G56.03 - Carpal tunnel syndrome, bilateral upper limbs Plan: As for CTS, I do not recommend pursuing surgery yet with everything going on. He denies any numbness now and does not want surgery anyway. Call if numbness recur. Plan Assessment and plan discussed with patient, and patient was agreeable. All questions were answered thoroughly. Total of 30 spent today including chart review, results review, history taking, physical examination, discussion of assessment and plan, and coordination of care. Hodan Mandujano MD, SANJEEV Board Certified, [place] Board of Physical Medicine and Rehabilitation (ABPMR) Board Certified, [place] Board of Electrodiagnostic Medicine (ABEM) CC: Dr. Knowles Coding Level of Care Code Est Pt Level 4 (06052) Diagnoses Seronegative rheumatoid arthritis M06.00 Bilateral carpal tunnel syndrome G56.03 Laterality: bilateral
[2023-08-27 10:17] VITALS: BMI 21.1
== END 2023-08-27 10:42 | disposition home or self-care (01) ==
PROVIDERS: Visit Provider Physical Medicine & Rehabilitation
DX: M06.00 Rheumatoid arthritis without rheumatoid factor, unspecified site (principal); G56.03 Carpal tunnel syndrome, bilateral upper limbs
CPT/HCPCS: 99214

== ENCOUNTER → 2023-08-27 10:07 | Outpatient (BNVA) | payer OTHER, SELFPAY | PROVIDERS: Visit Provider Physical Medicine & Rehabilitation | DX: M06.00 Rheumatoid arthritis without rheumatoid factor, unspecified site (principal); G56.03 Carpal tunnel syndrome, bilateral upper limbs | CPT/HCPCS: 99212 ==

== ENCOUNTER 2023-09-08 09:33 | Outpatient (REF) | payer OTHER, SELFPAY ==
[2023-09-08 10:32] LABS: MANUAL DIFF FLAG NO
[2023-09-08 10:40] LABS: Basophils Percent Auto 0.5 % (0-2); Eosinophils Absolute Auto 0.2 X10*3/uL (0.0-0.4); Eosinophils Percent Auto 2.8 % (0-4); Hematocrit 39.7 % (42.0-52.0); Hemoglobin 12.6 g/dl (14.0-18.0); Imm Gran Abs Auto 0.04 X10*3/uL (0.00-0.03); Imm Gran Pct Auto 0.7 % (0.0-0.4); Lymphocytes Absolute Auto 1.3 X10*3/uL (1.2-4.9); Lymphocytes Percent Auto 21.2 % (20-40); Mean Corpuscular HGB Conc 31.7 g/dl (31.0-36.0); Mean Corpuscular Hemoglobin 27.3 pg (27.0-33.0); Mean Corpuscular Volume 86.1 fL (80.0-98.0); Mean Platelet Volume 11.4 fL (9.4-12.4); Monocytes Absolute Auto 0.5 X10*3/uL (0.1-1.2); Monocytes Percent Auto 7.7 % (2-11); Neutrophils Percent Auto 67.1 % (45-73); Platelet Count 174 X10*3/uL (160-400); Red Blood Count 4.61 X10*6/uL (4.60-5.80); Red Cell Distribution Width 19.5 % (11.0-16.0)
[2023-09-08 10:50] LABS: Alanine Aminotransferase 18 U/L (0-40); Aspartate Amino Transferase 16 U/L (5-37); C Reactive Protein 0.15 mg/dL (< or = 0.50); Estimated Glomerular Filt Rate > 60
[2023-09-08 11:21] LABS: Erythrocyte Sedimentation Rate 11 MM/HR (0-15)
== END 2023-09-08 09:34 | disposition home or self-care (01) ==
LOC: HO.10HDL 09:33
PROVIDERS: Visit Provider Internal Medicine Rheumatology
DX: M06.00 Rheumatoid arthritis without rheumatoid factor, unspecified site (principal); Z79.899 Other long term (current) drug therapy
CPT/HCPCS: 36415; 82565; 84450; 84460; 85025; 85652; 86140

== ENCOUNTER 2023-09-17 09:29 | Outpatient (AMB) | payer OTHER, MEDICARE, SELFPAY ==
--- NOTE | 2023-09-17 09:38 | MHC.OFFVIS ---
Intake Vital Signs 09/17/23 09:39 Height 5 ft 10 in Weight 154 lb 15.759 oz BMI 22.2 BP 108/52 L Blood Pressure Location Lt brachial Position Sitting Pulse 99 Pulse Source Pulse Oximeter Temp 97.4 F Temp Source Skin Pulse Oximetry (%) 98 Oxygen Delivery Method Room Air Intake Visit Reasons: ra Intake Note: Patient presents today to follow up on test results and RA. Reports starting MTX. 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 He has rheumatoid arthritis currently on prednisone 5 mg the morning and 2.5 mg in the evening, methotrexate 15 mg once a week, and folic acid 1 mg daily. He says symptoms have improved considerably. He gets occasional discomfort and stiffness in the right hand across the MCP joints but overall his symptoms are much better. We had reduced his prednisone dose about 10 days ago without any worsening of symptoms. He still has some blurriness in the eyes but has not seen an eye doctor yet. He brings in a list of his blood sugars from the mornings. These range from around 100 to about 150. 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 Negative for dry eyes,headaches and dizziness ENT Details: Negative for hearing change, tinnitus, oral ulcer, nose bleeds and oral dryness. Card Details: Negative chest pain, edema and syncope Resp Details: Negative for SOB, cough and wheezing GI Details: Negative indigestion/heartburn, nausea, abdominal pain, bowel changes, diarrhea, constipation and bloody stool. Details: Negative for dysuria, hematuria, nocturia, decreased force/flow and genital discharge Skin/Breast Details: Negative for itching, rash, hives, Raynaud's symptoms, sun sensitivity, and skin cancer Neuro Details: Negative for epilepsy, palsy, stroke, changes in speech, tingling and weakness Psych Details: Negative for anxiety, depression and stress Endo Details: Negative for polyuria and polydypsia Angelo/Lymph Details: Negative for excessive bruising or bleeding. Physical Exam Vital Signs: Last Vital Signs Temp 97.4 F 09/17/23 09:39 Pulse 99 09/17/23 09:39 BP 108/52 L 09/17/23 09:39 Pulse Ox 98 09/17/23 09:39 Oxygen Delivery Method Room Air 09/17/23 09:39 BMI result Body Mass Index 22.2 APPEARANCE: Patient in no acute distress EYES no redness, pupils equal and reactive to light, eyelids normal Cervical Spine:.? Full range of motion with mild discomfort. No tenderness. Thoracic Spine:.? No scoliosis.? No tenderness on palpation. Lumbar Spine:.? Alignment normal.? Full range of motion without pain, no tenderness. Chest Wall:.? There is a well-healed sternotomy scar. No areas of tenderness. The skin is intact. No increased warmth or erythema. Hands: Right: There is mild swelling without tenderness of the 2nd and 3rd MCP joints.. There is no triggering. I do not detect sensory loss or thenar atrophy. There is slight tenderness at the base of the thumb without swelling. There is nontender bony enlargement at the thumb IP. There is some bony enlargement without tenderness at the 2nd and 3rd PIP joints.? Left: There is mild swelling without tenderness at the 1st 3 MCP joint. The other MCPs do not have any swelling and tenderness. There is nontender bony enlargement at the thumb IP and in all the PIP joints. There is no thenar atrophy. There may be some decreased sensation of the 2nd and 3rd fingertips. No flexor tendon trigger Wrists: Right: There is no pain with flexion extension at 75 degrees. There is no swelling or tenderness. Left: no pain with flexion extension at 75 degrees. There is no swelling, tenderness or warmth. Elbows:. Normal range of motion with no pain at the extremes of normal flexion or extension. There is no tenderness, swelling, increased warmth or erythema. Shoulders:.? Right: Minimal discomfort at the extremes of normal range of motion. No tenderness, swelling or adenopathy Left: Normal pain-free range of motion without tenderness, weakness or swelling. No adenopathy. Hips: Right: Normal pain-free range of motion. No groin pain with motion. Left: There is normal pain-free range of motion. Hip bursa:.? Mild left trochanteric tenderness. Knees:.??Right: There is slight patellofemoral crepitus and no pain with extremes of full extension. There is no effusion, joint margin tenderness, or popliteal tenderness. No effusion anteriorly, no redness or warmth. Left: Mild patellofemoral crepitus and no pain with extremes of motion. There is no tenderness, redness or effusion. Ankles:.? Normal pain-free range of motion without tenderness, swelling, increased warmth or erythema. Feet:.? Normal pain-free range of motion without tenderness, swelling, increased warmth or erythema. Tender points: No tenderness to digital palpation at the occiput, trapezius, second rib, lateral epicondyle, knees, greater trochanter and gluteal area bilaterally. ? 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 Much of this is the result of the prednisone but the acute phase reactants have normalized suggesting some benefit so far from the methotrexate. I would expect more improvement the longer he stays on the methotrexate out to the next few months. We will continue with the methotrexate as the lab work looks good. He will reduce his prednisone to 5 mg daily starting today and then in 2 weeks drop down 2.5 mg daily and then in 4 weeks from today to stop the prednisone. If he has any return of symptoms he should call us for further adjustment in the prednisone dose but given the improvement in his inflammatory markers and exam I think it is likely he is going to be a good responder to methotrexate. We will aim for follow-up at about 2 months. 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 (current) drug therapy Creatinine Today M06.00 - Rheumatoid arthritis without rheumatoid factor, unspecified site, Z79.899 - Other mcfp (current) drug therapy Aspartate Amino Transferase Today M06.00 - Rheumatoid arthritis without rheumatoid factor, unspecified site, Z79.899 - Other termite renewal inspector (current) drug therapy Medications: Refilled methotrexate sodium 15 mg (6 x 2.5 mg) PO QWEEK 24 tabs 2RF M06.00 - Rheumatoid arthritis without rheumatoid factor, unspecified site Coding Level of Care Code Est Pt Level 3 (18459) Diagnoses [facility] use of drug Z79.899 Seronegative rheumatoid arthritis M06.00
[2023-09-17 09:39] VITALS: BP 108/52; PULSE 99; TEMP 36.3; O2SAT 98; BMI 22.2
== END 2023-09-17 10:19 | disposition home or self-care (01) ==
PROVIDERS: Visit Provider Internal Medicine Rheumatology
DX: Z79.899 Other long term (current) drug therapy (principal); M06.00 Rheumatoid arthritis without rheumatoid factor, unspecified site
CPT/HCPCS: 99213

== ENCOUNTER → 2023-09-17 09:29 | Outpatient (BNVA) | payer OTHER, MEDICARE, SELFPAY | PROVIDERS: Visit Provider Internal Medicine Rheumatology | DX: M06.00 Rheumatoid arthritis without rheumatoid factor, unspecified site (principal); Z79.899 Other long term (current) drug therapy | CPT/HCPCS: 99212 ==

== ENCOUNTER 2023-10-29 12:51 | Outpatient (REF) | payer OTHER, SELFPAY ==
[2023-10-29 13:08] LABS: MANUAL DIFF FLAG NO
[2023-10-29 13:31] LABS: Basophils Percent Auto 0.3 % (0-2); Eosinophils Absolute Auto 0.1 X10*3/uL (0.0-0.4); Eosinophils Percent Auto 0.7 % (0-4); Hematocrit 40.4 % (42.0-52.0); Hemoglobin 13.2 g/dl (14.0-18.0); Imm Gran Abs Auto 0.06 X10*3/uL (0.00-0.03); Imm Gran Pct Auto 0.7 % (0.0-0.4); Lymphocytes Absolute Auto 1.1 X10*3/uL (1.2-4.9); Lymphocytes Percent Auto 12.7 % (20-40); Mean Corpuscular HGB Conc 32.7 g/dl (31.0-36.0); Mean Corpuscular Hemoglobin 28.8 pg (27.0-33.0); Mean Platelet Volume 10.8 fL (9.4-12.4); Monocytes Absolute Auto 0.4 X10*3/uL (0.1-1.2); Monocytes Percent Auto 4.6 % (2-11); Neutrophils Absolute Auto 7.2 x10*3/uL (2.0-8.3); Platelet Count 167 X10*3/uL (160-400); Red Blood Count 4.59 X10*6/uL (4.60-5.80); Red Cell Distribution Width 15.7 % (11.0-16.0); White Blood Count 8.9 X10*3/uL (4.8-10.8)
[2023-10-29 14:02] LABS: Alanine Aminotransferase 17 U/L (0-40); Aspartate Amino Transferase 17 U/L (5-37); C Reactive Protein < 0.10 mg/dL (< or = 0.50); Estimated Glomerular Filt Rate > 60
[2023-10-29 14:07] LABS: Erythrocyte Sedimentation Rate 7 MM/HR (0-15)
== END 2023-10-29 12:52 | disposition home or self-care (01) ==
LOC: HO.LAB 12:51
PROVIDERS: Visit Provider Internal Medicine Rheumatology
DX: M06.00 Rheumatoid arthritis without rheumatoid factor, unspecified site (principal); Z79.899 Other long term (current) drug therapy
CPT/HCPCS: 36415; 82565; 84450; 84460; 85025; 85652; 86140

== ENCOUNTER 2023-11-06 09:43 | Outpatient (AMB) | payer OTHER, MEDICARE, SELFPAY ==
--- NOTE | 2023-11-06 09:47 | A.OFFVIS_ITS ---
Intake Vital Signs 11/06/23 09:53 Height 5 ft 10 in Weight 157 lb 6.561 oz BMI 22.6 BP 120/72 Blood Pressure Location Lt brachial Position Sitting Pulse 84 Pulse Source Pulse Oximeter Temp 97.5 F Temp Source Skin Pulse Oximetry (%) 98 Oxygen Delivery Method Room Air Intake Visit Reasons: ra with crnp Intake Note: Patient last seen 09/17/[address] Knowles, presents today for follow up and test results. Reports unable to taper prednisone down to 2.5 qd. Remains taking 5 mg BID. Airline Dispatcher Required: Yes Airline Dispatcher Name: Daughter Accompanied by: Daughter Allergies lisinopril Allergy (Mild, Verified 11/06/23 09:54) Cough HPI HPI Comments History of Present Illness Details Mr. Coreas, 68yoM returns with his daughter who helps translate. He has rheumatoid arthritis currently on prednisone 5 mg the morning and 5 mg in the evening, methotrexate 15 mg once a week, and folic acid 1 mg daily. He says symptoms have improved considerably. He gets occasional discomfort and stiffness in the right hand across the MCP joints but overall his symptoms are much better. At the last visit, 08/2023, we had reduced his prednisone dose but he had return of symptoms to upper arms and hand swelling soon after and so he went back up to Prednisone 5 and 5. Blood sugar continues to from around 100 to about 150. [facility] Medical History (Updated 11/09/23 @ 13:17 by Niharika Valle [facility]) Polymyalgia rheumatica Type 2 diabetes mellitus without complication Hyperlipidemia, unspecified Arthritis Carpal tunnel syndrome DJD of right shoulder Surgical History S/P triple vessel bypass Family History Daughter Arthritis 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 Const All systems reviewed & are unremarkable except as noted in HPI and below Physical Exam Vital Signs: Last Vital Signs Temp 97.5 F 11/06/23 09:53 Pulse 84 11/06/23 09:53 BP 120/72 11/06/23 09:53 Pulse Ox 98 11/06/23 09:53 Oxygen Delivery Method Room Air 11/06/23 09:53 BMI result Body Mass Index 22.6 APPEARANCE: Patient in no acute distress EYES no redness, pupils equal and reactive to light, eyelids normal Cervical Spine:.? Full range of motion with mild discomfort. No tenderness. Thoracic Spine:.? No scoliosis.? No tenderness on palpation. Lumbar Spine:.? Alignment normal.? Full range of motion without pain, no tenderness. Chest Wall:.? There is a well-healed sternotomy scar. No areas of tenderness. The skin is intact. No increased warmth or erythema. Hands: Right: The mild swelling without tenderness of the 2nd and 3rd MCP joints from last visit is resolved. There is no triggering. I do not detect sensory loss or thenar atrophy. There is slight tenderness at the base of the thumb without swelling. There is nontender bony enlargement at the thumb IP. There is some bony enlargement without tenderness at the 2nd and 3rd PIP joints.? Left: There is no more mild swelling without tenderness at the 1st 3 MCP joint. The other MCPs do not have any swelling and tenderness. There is nontender bony enlargement at the thumb IP and in all the PIP joints. There is no thenar atrophy. There may be some decreased sensation of the 2nd and 3rd fingertips. No flexor tendon trigger Wrists: Right: There is no pain with flexion extension at 75 degrees. There is no swelling or tenderness. Left: no pain with flexion extension at 75 degrees. There is no swelling, tenderness or warmth. Elbows:. Normal range of motion with no pain at the extremes of normal flexion or extension. There is no tenderness, swelling, increased warmth or erythema. Shoulders:.? Right: Minimal discomfort at the extremes of normal range of motion. No tenderness, swelling or adenopathy Left: Normal pain-free range of motion without tenderness, weakness or swelling. No adenopathy. Hips: Right: Normal pain-free range of motion. No groin pain with motion. Left: There is normal pain-free range of motion. Hip bursa:.? Mild left trochanteric tenderness. Knees:.??Right: There is slight patellofemoral crepitus and no pain with extremes of full extension. There is no effusion, joint margin tenderness, or popliteal tenderness. No effusion anteriorly, no redness or warmth. Left: Mild patellofemoral crepitus and no pain with extremes of motion. There is no tenderness, redness or effusion. Ankles:.? Normal pain-free range of motion without tenderness, swelling, increased warmth or erythema. Feet:.? Normal pain-free range of motion without tenderness, swelling, increased warmth or erythema. Tender points: No tenderness to digital palpation at the occiput, trapezius, second rib, lateral epicondyle, knees, greater trochanter and gluteal area bilaterally. ? 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 In reviewing his history and presention, I am more inclined to think the patient is experiencing PMR and less likely Rheumatoid arthritis. He describes that at onset the upper arms and thighs were painful, unable to lift his arms, challenges sitting and standing due to pain and weakness to glutes and quads. Whenever the prednisone is reduced, the ROS occurrs in the upper arms and swelling to the dorsaum of his hands. He has been on Prednisone since starting treatment and has not been able to be weaned and has ROS each time prednisone is reduced. At this time I am recommending that we treat as PMR and reduce the MTX gradually and reassess. We will start by maintaining the Prednisone at 10mg and reduce MTX to 5 pills for the next month, then reduce to 9mg and 4 pills the next month. We will also follow with update ESR/CRP and evaluate any ROS. if patient worsens with the reduction of MTX then also becomes more apparent that he does need MTX or perhaps a Biologic in order to wean of Prednisone. ESR/CRP WNL #Group Home Use MTX: Patient has denied side effects ot MTX. His labs are grossly normal and so we paloma continue to monitor I spent 35 minutes reviewing history, evaluating patients and documenting Follow-up i 1 month Orders: Orders Erythrocyte Sedimentation Rate 11/06/23 M06.00 - Rheumatoid arthritis without rheumatoid factor, unspecified site C Reactive Protein 11/06/23 M06.00 - Rheumatoid arthritis without rheumatoid factor, unspecified site Comprehensive Met. Panel 11/06/23 Z79.899 - Other senior living (current) drug therapy Complete Blood Count Auto Diff 11/06/23 Z79.899 - Other terminal operator (current) drug therapy Medications: New prednisone Take with one 5mg tablet for taper 4 tablets per day for 30 days, then 3 tablets per day for 30 days. 240 tabs 0RF M06.00 - Rheumatoid arthritis without rheumatoid factor, unspecified site Coding Level of Care Code Est Pt Level 4 (86399) Diagnoses [facility] use of drug Z79.899 Seronegative rheumatoid arthritis M06.00 Polymyalgia rheumatica M35.3
[2023-11-06 09:53] VITALS: BP 120/72; PULSE 84; TEMP 36.4; O2SAT 98; BMI 22.6
== END 2023-11-06 10:32 | disposition home or self-care (01) ==
PROVIDERS: Visit Provider Nurse Practitioner Family
DX: Z79.899 Other long term (current) drug therapy (principal); M06.00 Rheumatoid arthritis without rheumatoid factor, unspecified site; M35.3 Polymyalgia rheumatica
CPT/HCPCS: 99214

== ENCOUNTER → 2023-11-06 09:43 | Outpatient (BNVA) | payer OTHER, MEDICARE, SELFPAY | PROVIDERS: Visit Provider Nurse Practitioner Family | DX: M06.00 Rheumatoid arthritis without rheumatoid factor, unspecified site (principal); M35.3 Polymyalgia rheumatica; Z79.899 Other long term (current) drug therapy | CPT/HCPCS: 99212 ==

== ENCOUNTER 2024-01-06 10:40 | Outpatient (AMB) | payer OTHER, MEDICARE, SELFPAY ==
--- NOTE | 2024-01-06 10:41 | A.OFFVIS_ITS ---
Intake Vital Signs 01/06/24 10:42 Height 5 ft 10 in Weight 161 lb 13.109 oz BMI 23.2 BP 138/72 Blood Pressure Location Rt brachial Position Sitting Respiration 15 Pulse 84 Temp 97.6 F Temp Source Skin Pulse Oximetry (%) 100 Oxygen Delivery Method Room Air Intake Visit Reasons: RA vs PMR Systems Development Manager Required: Yes Systems Development Manager Name: PT's daughter Accompanied by: Daughter Allergies lisinopril Allergy (Mild, Verified 01/06/24 10:44) Cough Medication List - Last Reconciled 01/06/24 by Cherie Cline RN aspirin 81 mg PO DAILY atorvastatin 40 mg every other day due to joint pain orally daily; capsaicin 0.1% appl topical clopidogrel 75 mg PO DAILY fluticasone propionate 50 mcg/actuation 1 spray intranasal DAILY folic acid 1 mg PO DAILY gabapentin 300 mg PO DAILY metformin 1,000 mg PO BID methotrexate sodium 12.5 mg (5 x 2.5 mg) PO QWEEK metoprolol succinate ER 12.5 mg PO BID omega 9-tpe-yui-fish oil 300 mg (120 mg- 180mg)-1,000 mg caps PO prednisone Take with one 5mg tablet for taper 4 tablets per day for 30 days, then 3 tablets per day for 30 days. prednisone 5 mg PO DAILY semaglutide (Ozempic) mg subcut HPI HPI Comments History of Present Illness Details Mr. Coreas 68yoM returns with his daughter who helps translate. At last visit we changed the course of his treatment towards PMR versus rheumatoid arthritis. He has been doing well on the current regimen of prednisone with a slower taper and reducing methotrexate. He is currently on prednisone 8 mg q.d. and methotrexate 2.53 pills q.week. he does have some side effects while using the prednisone such as increased urination at night and feeling some coldness. He also thinks it gives him blurry vision. 11/06/2023 Niharika: Mr. Coreas 68yoM returns with his daughter who helps translate. He has rheumatoid arthritis currently on prednisone 5 mg the morning and 5 mg in the evening, methotrexate 15 mg once a week, and folic acid 1 mg daily. He says symptoms have improved considerably. He gets occasional discomfort and stiffness in the right hand across the MCP joints but overall his symptoms are much better. At the last visit, 08/2023, we had reduced his prednisone dose but he had return of symptoms to upper arms and hand swelling soon after and so he went back up to Prednisone 5 and 5. Blood sugar continues to from around 100 to about 150. [facility] Medical History Polymyalgia rheumatica Type 2 diabetes mellitus without complication Hyperlipidemia, unspecified Arthritis Carpal tunnel syndrome DJD of right shoulder Surgical History S/P triple vessel bypass Family History Daughter Arthritis 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 Const All systems reviewed & are unremarkable except as noted in HPI and below Physical Exam Vital Signs: Last Vital Signs Temp 97.6 F 01/06/24 10:42 Pulse 84 01/06/24 10:42 Resp 15 01/06/24 10:42 BP 138/72 01/06/24 10:42 Pulse Ox 100 01/06/24 10:42 Oxygen Delivery Method Room Air 01/06/24 10:42 BMI result Body Mass Index 23.2 APPEARANCE: Patient in no acute distress EYES no redness, pupils equal and reactive to light, eyelids normal Cervical Spine:.? Full range of motion with mild discomfort. No tenderness. Thoracic Spine:.? No scoliosis.? No tenderness on palpation. Lumbar Spine:.? Alignment normal.? Full range of motion without pain, no tenderness. Chest Wall:.? There is a well-healed sternotomy scar. No areas of tenderness. The skin is intact. No increased warmth or erythema. Hands: Right: The mild swelling without tenderness of the 2nd and 3rd MCP joints from last visit is resolved. There is no triggering. I do not detect sensory loss or thenar atrophy. There is slight tenderness at the base of the thumb without swelling. There is nontender bony enlargement at the thumb IP. There is some bony enlargement without tenderness at the 2nd and 3rd PIP joints.? Left: There is no more mild swelling without tenderness at the 1st 3 MCP joint. The other MCPs do not have any swelling and tenderness. There is nontender bony enlargement at the thumb IP and in all the PIP joints. There is no thenar atrophy. There may be some decreased sensation of the 2nd and 3rd fingertips. No flexor tendon trigger Wrists: Right: There is no pain with flexion extension at 75 degrees. There is no swelling or tenderness. Left: no pain with flexion extension at 75 degrees. There is no swelling, tenderness or warmth. Elbows:. Normal range of motion with no pain at the extremes of normal flexion or extension. There is no tenderness, swelling, increased warmth or erythema. Shoulders:.? Right: Minimal discomfort at the extremes of normal range of motion. No tenderness, swelling or adenopathy Left: Normal pain-free range of motion without tenderness, weakness or swelling. No adenopathy. Hips: Right: Normal pain-free range of motion. No groin pain with motion. Left: There is normal pain-free range of motion. Hip bursa:.? Mild left trochanteric tenderness. Knees:.??Right: There is slight patellofemoral crepitus and no pain with extremes of full extension. There is no effusion, joint margin tenderness, or popliteal tenderness. No effusion anteriorly, no redness or warmth. Left: Mild patellofemoral crepitus and no pain with extremes of motion. There is no tenderness, redness or effusion. Ankles:.? Normal pain-free range of motion without tenderness, swelling, increased warmth or erythema. Feet:.? Normal pain-free range of motion without tenderness, swelling, increased warmth or erythema. Tender points: No tenderness to digital palpation at the occiput, trapezius, second rib, lateral epicondyle, knees, greater trochanter and gluteal area bilaterally. ? 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 He is doing well so far however with some mild side effects on prednisone. Given that I will change to decrease the prednisone by 2 mg instead of 1 mg per month. I did tell the patient that if he has return of symptoms to call the office and we will go back to the original plan of reducing to 1 mg per month. He will do methotrexate to pills for 1 more month and then stop the methotrexate altogether. We will repeat ESR/CRP. If patient has return of symptoms with the continued reduction of MTX then also becomes more apparent that he does need MTX or perhaps a Biologic in order to wean of Prednisone. ESR/CRP WNL as of October 2023 #Longterm Use MTX: Patient has denied side effects ot MTX. 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
[2024-01-06 10:42] VITALS: BP 138/72; PULSE 84; RESP 15; TEMP 36.4; O2SAT 100; BMI 23.2
== END 2024-01-06 11:16 | disposition home or self-care (01) ==
PROVIDERS: Visit Provider Nurse Practitioner Family
DX: Z79.899 Other long term (current) drug therapy (principal); M06.00 Rheumatoid arthritis without rheumatoid factor, unspecified site; M35.3 Polymyalgia rheumatica
CPT/HCPCS: 99213

== ENCOUNTER → 2024-01-06 10:40 | Outpatient (BNVA) | payer OTHER, MEDICARE, SELFPAY | PROVIDERS: Visit Provider Nurse Practitioner Family | DX: M06.00 Rheumatoid arthritis without rheumatoid factor, unspecified site (principal); M35.3 Polymyalgia rheumatica; Z79.899 Other long term (current) drug therapy | CPT/HCPCS: 99212 ==

== ENCOUNTER 2024-01-06 11:23 | Outpatient (REF) | payer OTHER, MEDICARE, SELFPAY ==
[2024-01-06 13:31] LABS: MANUAL DIFF FLAG NO
[2024-01-06 13:37] LABS: Basophils Percent Auto 0.2 % (0-2); Eosinophils Absolute Auto 0.1 X10*3/uL (0.0-0.4); Eosinophils Percent Auto 1.1 % (0-4); Hematocrit 40.9 % (42.0-52.0); Hemoglobin 13.6 g/dl (14.0-18.0); Imm Gran Abs Auto 0.05 X10*3/uL (0.00-0.03); Imm Gran Pct Auto 0.6 % (0.0-0.4); Lymphocytes Percent Auto 11.6 % (20-40); Mean Corpuscular HGB Conc 33.3 g/dl (31.0-36.0); Mean Corpuscular Hemoglobin 30.1 pg (27.0-33.0); Mean Corpuscular Volume 90.5 fL (80.0-98.0); Mean Platelet Volume 10.6 fL (9.4-12.4); Monocytes Absolute Auto 0.5 X10*3/uL (0.1-1.2); Monocytes Percent Auto 5.3 % (2-11); Neutrophils Absolute Auto 6.9 x10*3/uL (2.0-8.3); Neutrophils Percent Auto 81.2 % (45-73); Platelet Count 189 X10*3/uL (160-400); Red Blood Count 4.52 X10*6/uL (4.60-5.80); Red Cell Distribution Width 14.4 % (11.0-16.0); White Blood Count 8.4 X10*3/uL (4.8-10.8)
[2024-01-06 14:00] LABS: Anion Gap 13 (12-20); Blood Urea Nitrogen 14 mg/dL (9-16); Carbon Dioxide 24 mmol/L (22-29); Chloride 104 mmol/L (96-108); Estimated Glomerular Filt Rate > 60; Glucose Random 237 mg/dL (60-115); Potassium 4.2 mmol/L (3.3-5.1); Sodium 137 mmol/L (135-145)
[2024-01-06 14:01] LABS: Alanine Aminotransferase 16 U/L (0-40); Albumin Level 4.2 g/dL (3.5-5.0); Alkaline Phosphatase 59 U/L (39-117); Aspartate Amino Transferase 17 U/L (5-37); Bilirubin Total 0.3 mg/dL (0.0-1.0); C Reactive Protein < 0.10 mg/dL (< or = 0.50); Calcium 9.6 mg/dL (8.4-10.2); Total Protein 6.7 g/dL (6.5-8.0)
[2024-01-06 14:22] LABS: Erythrocyte Sedimentation Rate 10 MM/HR (0-15)
== END 2024-01-06 11:24 | disposition home or self-care (01) ==
LOC: HO.10HDL 11:23
PROVIDERS: Visit Provider Nurse Practitioner Family
DX: M06.00 Rheumatoid arthritis without rheumatoid factor, unspecified site (principal); Z79.899 Other long term (current) drug therapy
CPT/HCPCS: 36415; 80053; 85025; 85652; 86140

== ENCOUNTER 2024-03-02 09:31 | Outpatient (REF) | payer OTHER, MEDICARE, SELFPAY ==
[2024-03-02 11:31] LABS: C Reactive Protein < 0.04 mg/dL (< or = 0.50)
[2024-03-02 11:45] LABS: Erythrocyte Sedimentation Rate 7 MM/HR (0-15)
== END 2024-03-02 09:32 | disposition home or self-care (01) ==
LOC: HO.10HDL 09:31
PROVIDERS: Visit Provider Nurse Practitioner Family
DX: M35.3 Polymyalgia rheumatica (principal)
CPT/HCPCS: 36415; 85652; 86140

== ENCOUNTER 2024-03-18 08:18 | Outpatient (AMB) | payer OTHER, MEDICARE, SELFPAY ==
--- NOTE | 2024-03-18 08:40 | A.OFFVIS_ITS ---
Vital Signs 03/18/24 08:42 Height 5 ft 10 in Weight 159 lb 9.835 oz BMI 22.9 BP 136/70 Blood Pressure Location Rt brachial Position Sitting Pulse 65 Pulse Source Pulse Oximeter Pulse Oximetry (%) 97 Oxygen Delivery Method Room Air Intake Visit Reasons: RA/PMR Intake Note: Patient last seen 01/06/24, presents today for follow up and test results. Animation Camera Operator Required: No Accompanied by: Daughter Allergies lisinopril Allergy (Mild, Verified 03/18/24 08:45) Cough HPI Comments Details: Today Mr. Coreas 68yoLu[age] Miguel returns with his daughter who helps translate; here for f/u of PMR vs SeroNeg RA. He has been doing well on the current regimen of prednisone with a slower taper and reducing methotrexate. He is currently on prednisone 4 mg q.d. and has stopped MTX. He denies ROS. He does have some side effects while using the prednisone such as increased urination at night and feeling some coldness. He also thinks it gives him blurry vision. 01/06/24:Eugene Way returns with his daughter who helps translate. At last visit we changed the course of his treatment towards PMR versus rheumatoid arthritis. He has been doing well on the current regimen of prednisone with a slower taper and reducing methotrexate. He is currently on prednisone 8 mg q.d. and methotrexate 2.5 3 pills q.week. he does have some side effects while using the prednisone such as increased urination at night and feeling some coldness. He also thinks it gives him blurry vision. 11/06/2023 Niharika: Skinny WayyoLuis Miguel returns with his daughter who helps translate. He has rheumatoid arthritis currently on prednisone 5 mg the morning and 5 mg in the evening, methotrexate 15 mg once a week, and folic acid 1 mg daily. He says symptoms have improved considerably. He gets occasional discomfort and stiffness in the right hand across the MCP joints but overall his symptoms are much better. At the last visit, 08/2023, we had reduced his prednisone dose but he had return of symptoms to upper arms and hand swelling soon after and so he went back up to Prednisone 5 and 5. Blood sugar continues to from around 100 to about 150. [facility] Medical History Polymyalgia rheumatica Type 2 diabetes mellitus without complication Hyperlipidemia, unspecified Arthritis Carpal tunnel syndrome DJD of right shoulder Surgical History S/P triple vessel bypass Family History Daughter Arthritis 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 Const All systems reviewed & are unremarkable except as noted in HPI and below Physical Exam Vital Signs: Last Vital Signs Pulse 65 03/18/24 08:42 BP 136/70 03/18/24 08:42 Pulse Ox 97 03/18/24 08:42 Oxygen Delivery Method Room Air 03/18/24 08:42 BMI result Body Mass Index 22.9 Vital signs reviewed. Constitutional: Non-toxic appearing. No acute distress. Well-developed and well-nourished. HEENT: Normocephalic and atraumatic. External auditory canals without erythema or edema bilaterally. Moist mucous membranes. No pharyngeal erythema or exudate s. Skin: Warm and dry. No rashes or lesions noted. Cardio: Regular rate and rhythm. No murmurs, gallops, or rubs. No lower extremity edema. No JVD. Pulmonary: No respiratory distress. No accessory muscle usage. Gastrointestinal: Soft, nontender, and nondistended in all 4 quadrants. Normoactive bowel sounds in all 4 quadrants. Genitourinary: No CVA tenderness. Musculoskeletal: Normal range of motion in joints throughout the body. No deformity or other signs of injury. Denies tenderness on palpation of upper arms, shoulders, thighs, stand and sit without hesitation. Lifts arm above head without discomfort Neuro: Alert and oriented x4. Cranial nerves 2-12 grossly intact. No focal deficits appreciated. Assessment & Plan Assessment & Plan (1) skilled nursing use of drug: Code(s): Z79.899 - Other baby attendant (current) drug therapy Category: Medical (2) Polymyalgia rheumatica: Code(s): M35.3 - Polymyalgia rheumatica Category: Medical Plan #PMR vs SeroNeg RA: At the October 2023 visit we had changed the course of treatment to PMR with a plan to stop MTX. He is now at 4 mg and continues to do well with some mild side effects on prednisone such as increase urination. We will continue to decrease the prednisone by 2 mg instead of 1 mg per month. He knows that if he has return of symptoms to call the office and we will go back to the original plan of reducing to 1 mg per month. He has stopped the methotrexate altogether (for at least one month); ESR/CR continues to be normal as of February 2024. #[employer] Use MTX: Patient has denied side effects of MTX. He has completely stopped the MTX and is doing well so we will continue to hold MTX. I spent 20 minutes reviewing chart, evaluating patients and documenting Follow-up in 2 month Medications: On Hold methotrexate sodium Hold Comment: Doctor's Order 12.5 mg (5 x 2.5 mg) PO QWEEK 77 tabs 0RF M06.00 - Rheumatoid arthritis without rheumatoid factor, unspecified site Coding Level of Care Code Est Pt Level 3 (22928) Complex EM visit Add On G2211 Diagnoses skilled nursing use of drug Z79.899 Polymyalgia rheumatica M35.3
[2024-03-18 08:42] VITALS: BP 136/70; PULSE 65; O2SAT 97; BMI 22.9
== END 2024-03-18 09:04 | disposition home or self-care (01) ==
PROVIDERS: Visit Provider Nurse Practitioner Family
DX: Z79.899 Other long term (current) drug therapy (principal); M35.3 Polymyalgia rheumatica
CPT/HCPCS: 99213; G2211

== ENCOUNTER → 2024-03-18 08:18 | Outpatient (BNVA) | payer OTHER, MEDICARE, SELFPAY | PROVIDERS: Visit Provider Nurse Practitioner Family | DX: M35.3 Polymyalgia rheumatica (principal); Z79.899 Other long term (current) drug therapy | CPT/HCPCS: 99212 ==

== ENCOUNTER 2024-05-18 10:30 | Outpatient (AMB) | payer OTHER, MEDICARE, SELFPAY ==
--- NOTE | 2024-05-18 10:43 | A.OFFVIS_ITS ---
Vital Signs 05/18/24 10:44 Height 5 ft 10 in Weight 157 lb 6.561 oz BMI 22.6 BP 128/82 Blood Pressure Location Rt brachial Position Sitting Pulse 88 Pulse Source Pulse Oximeter Pulse Oximetry (%) 97 Oxygen Delivery Method Room Air Intake Visit Reasons: RA Intake Note: Patient is here for RA follow up. Allergies lisinopril Allergy (Mild, Verified 05/18/24 10:46) Cough Medication List - Last Reconciled 05/18/24 by Evelyn Brown MD aspirin 81 mg PO DAILY atorvastatin 40 mg every other day due to joint pain orally daily; capsaicin 0.1% appl topical clopidogrel 75 mg PO DAILY fluticasone propionate 50 mcg/actuation 1 spray intranasal DAILY folic acid 1 mg PO DAILY gabapentin 300 mg PO DAILY metformin 1,000 mg PO BID metoprolol succinate ER 12.5 mg PO BID omega 1-ruq-pit-fish oil 300 mg (120 mg- 180mg)-1,000 mg caps PO prednisone 4 mg (4 x 1 mg) PO DAILY semaglutide (Ozempic) mg subcut HPI Comments Details: Patient returns for 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 Patient was initially diagnosed with seronegative RA by Dr. Knowles and started on methotrexate and prednisone, the diagnosis was changed to seronegative RA by Niharika Murguia. Methotrexate has been discontinued and prednisone has been slowly tapered. Patient was doing quite well on prednisone 4 mg daily, then it was reduced to 2 mg daily, he was doing quite well until it was tapered off 05/07. A few days he started having multiple joint pain including his shoulders, his right hand knuckles, the outside of his hips, he restarted prednisone at 4 mg a day a few days ago with significant improvement. He has no complaints today. Denies any swollen joints. Daughter mentions that his brother has psoriasis. Initial history by Dr. Knowles: The patient presents with his daughter who helps translate. In February the patient underwent triple bypass surgery for his coronary artery disease. That went well but in early April he developed wid espread pains. These included pains in the shoulders, hands, wrists, hips, and knees. There is about 3 hours of morning stiffness and that makes it difficult to get up out of bed. He notes swelling in the fingers and the wrists. He had an ultrasound of the leg documented a right popliteal cyst. Last week he had nerve conduction studies showing bilateral moderately severe carpal tunnel syndrome. He takes acetaminophen for symptoms without much improvement. He has been advised against the use of NSAIDs by Cardiology. There was a brief course of prednisone in the summer but he does not recall if it improved things much. He did recently receive a right shoulder corticosteroid injection. After 3 days he did have some overall improvement in his shoulder and other joints but symptoms reverted back to baseline again in another 24 hours. He has had some blood work in this laboratory as well as at [place]. [facility] Medical History Polymyalgia rheumatica Type 2 diabetes mellitus without complication Hyperlipidemia, unspecified Arthritis Carpal tunnel syndrome DJD of right shoulder Surgical History S/P triple vessel bypass Family History Daughter Arthritis Brother No problems noted. 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 Denies arthralgias, Denies joint swelling and Denies stiffness Physical Exam Vital Signs: Last Vital Signs Pulse 88 05/18/24 10:44 BP 128/82 05/18/24 10:44 Pulse Ox 97 05/18/24 10:44 Oxygen Delivery Method Room Air 05/18/24 10:44 BMI result Body Mass Index 22.6 Const General: cooperative, healthy appearing and comfortable Nutritional Appearance: average body habitus Orientation/consciousness: patient oriented x3 Limitations: no limitations HEENT Head: Yes normocephalic and Yes atraumatic Mouth: moist mucous membranes Resp Effort & Inspection: normal respiratory effort and able to speak in complete sentences Auscultation: clear to auscultation bilaterally Cardio Rate: regular rate Rhythm: regular rhythm Skin General skin exam: no rashes or lesions noted Neuro General: patient oriented x3 Extrem Other: Osteoarthritic changes of both hands Bilateral wrist pain with full flexion and extension Negative MCP squeeze test bilaterally No flexor tendon tenderness bilaterally 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 Patient was initially diagnosed with seronegative RA by Dr. Knowles 07/2023. He was started on methotrexate and prednisone with improvement. Diagnosis was changed to PMR by Niharika Murguia and methotrexate was discontinued, prednisone has been tapered down slowly. Patient was doing quite well on prednisone 2 mg daily, he stopped it for a few days then started flaring up again. He has taking mg daily today with resolution of symptoms. His brother has psoriasis. Upon evaluation today the diagnosis is not clear to me whether it is seronegative RA or PMR with peripheral synovitis. Features favoring seronegative arthritis is the triscaphe osteoarthritis and intermittent carpal tunnel symptoms when initially diagnosed, the left knee effusion, patient pointing to his right hand knuckle pain today, features favoring PMR is onset of symptoms above age 65 significantly elevated ESR at diagnosis, shoulder and hip involvement. I am leaning towards seronegative rheumatoid arthritis versus psoriatic arthritis. Check inflammatory markers today. Check HLA B27. Restart prednisone at 3 mg daily for 3 weeks then remain on 2 mg daily Labs before next visit in 2 months Plan I spent 30 minutes reviewing patient's chart, evaluating patient, ordering diagnostic workup, counseling patient and documenting in the chart Orders: Orders C Reactive Protein 2 Months M06.00 - Rheumatoid arthritis without rheumatoid factor, unspecified site Complete Blood Count Auto Diff Today M06.00 - Rheumatoid arthritis without rheumatoid factor, unspecified site Comprehensive Met. Panel Today M06.00 - Rheumatoid arthritis without rheumatoid factor, unspecified site C Reactive Protein Today M06.00 - Rheumatoid arthritis without rheumatoid factor, unspecified site Complete Blood Count Auto Diff 2 Months M06.00 - Rheumatoid arthritis without rheumatoid factor, unspecified site Comprehensive Met. Panel 2 Months M06.00 - Rheumatoid arthritis without rheumatoid factor, unspecified site Erythrocyte Sedimentation Rate 2 Months M06.00 - Rheumatoid arthritis without rheumatoid factor, unspecified site Erythrocyte Sedimentation Rate Today M06.00 - Rheumatoid arthritis without rheumatoid factor, unspecified site HLA B27 Today M45.9 - Ankylosing spondylitis of unspecified sites in spine Medications: Changed From prednisone 4 mg (4 x 1 mg) PO DAILY 60 tabs 1RF M06.00 - Rheumatoid arthritis without rheumatoid factor, unspecified site To prednisone Take 3 tabs daily for 3 weeks then remain on 2 tabs daily 147 tabs 0RF M06.00 - Rheumatoid arthritis without rheumatoid factor, unspecified site Coding Level of Care Code Est Pt Level 4 (36198) Diagnoses Polymyalgia rheumatica M35.3
[2024-05-18 10:44] VITALS: BP 128/82; PULSE 88; O2SAT 97; BMI 22.6
== END 2024-05-18 11:20 | disposition home or self-care (01) ==
PROVIDERS: PCP Internal Medicine; Visit Provider Student in an Organized Health Care Education/Training Program
DX: M35.3 Polymyalgia rheumatica (principal)
CPT/HCPCS: 99214

== ENCOUNTER → 2024-05-18 10:30 | Outpatient (BNVA) | payer OTHER, MEDICARE, SELFPAY | PROVIDERS: Visit Provider Student in an Organized Health Care Education/Training Program | DX: M35.3 Polymyalgia rheumatica (principal); M45.9 Ankylosing spondylitis of unspecified sites in spine; M06.00 Rheumatoid arthritis without rheumatoid factor, unspecified site | CPT/HCPCS: 36415; 80053; 85025; 85652; 86140; 86812; 99212 ==

== ENCOUNTER 2024-05-18 12:45 | Outpatient (REF) | payer OTHER, MEDICARE, SELFPAY ==
[2024-05-18 13:04] LABS: MANUAL DIFF FLAG NO
[2024-05-18 13:32] LABS: Basophils Percent Auto 0.4 % (0-2); Eosinophils Absolute Auto 0.2 X10*3/uL (0.0-0.4); Eosinophils Percent Auto 3.1 % (0-4); Hematocrit 42.1 % (42.0-52.0); Hemoglobin 13.8 g/dl (14.0-18.0); Imm Gran Abs Auto 0.03 X10*3/uL (0.00-0.03); Imm Gran Pct Auto 0.6 % (0.0-0.4); Lymphocytes Percent Auto 17.7 % (20-40); Mean Corpuscular HGB Conc 32.8 g/dl (31.0-36.0); Mean Corpuscular Hemoglobin 28.6 pg (27.0-33.0); Mean Corpuscular Volume 87.2 fL (80.0-98.0); Mean Platelet Volume 10.6 fL (9.4-12.4); Monocytes Absolute Auto 0.5 X10*3/uL (0.1-1.2); Monocytes Percent Auto 8.3 % (2-11); Neutrophils Absolute Auto 3.8 x10*3/uL (2.0-8.3); Neutrophils Percent Auto 69.9 % (45-73); Platelet Count 182 X10*3/uL (160-400); Red Blood Count 4.83 X10*6/uL (4.60-5.80); Red Cell Distribution Width 12.9 % (11.0-16.0); White Blood Count 5.4 X10*3/uL (4.8-10.8)
[2024-05-18 13:58] LABS: Alanine Aminotransferase 12 U/L (0-40); Albumin Level 4.3 g/dL (3.5-5.0); Alkaline Phosphatase 62 U/L (39-117); Anion Gap 15 (12-20); Aspartate Amino Transferase 16 U/L (5-37); Bilirubin Total 0.3 mg/dL (0.0-1.0); Blood Urea Nitrogen 17 mg/dL (9-16); C Reactive Protein 0.15 mg/dL (< or = 0.50); Calcium 9.6 mg/dL (8.4-10.2); Carbon Dioxide 23 mmol/L (22-29); Chloride 101 mmol/L (96-108); Estimated Glomerular Filt Rate > 60; Glucose Random 167 mg/dL (60-115); Potassium 4.5 mmol/L (3.3-5.1); Sodium 134 mmol/L (135-145); Total Protein 7.1 g/dL (6.5-8.0)
[2024-05-18 14:15] LABS: Erythrocyte Sedimentation Rate 14 MM/HR (0-15)
[2024-05-24 11:54] LABS: HLA B27 Negative (Negative)
== END 2024-05-18 12:46 | disposition home or self-care (01) ==
LOC: HO.10HDL 12:45
PROVIDERS: Visit Provider Student in an Organized Health Care Education/Training Program
DX: Z13.89 Encounter for screening for other disorder (principal)
CPT/HCPCS: 36415; 80053; 85025; 85652; 86140; 86812

== ENCOUNTER 2024-07-13 11:18 | Outpatient (AMB) | payer OTHER, MEDICARE, SELFPAY ==
[2024-07-13 11:24] VITALS: BP 138/72; PULSE 56; O2SAT 100; BMI 23.0
--- NOTE | 2024-07-13 11:24 | MHC.OFFVIS ---
Vital Signs 07/13/24 11:24 Height 5 ft 10 in Weight 160 lb 0.889 oz BMI 23.0 BP 138/72 Blood Pressure Location Lt brachial Position Sitting Pulse 56 Pulse Source Pulse Oximeter Pulse Oximetry (%) 100 Oxygen Delivery Method Room Air Intake Visit Reasons: RA/PMR Intake Note: Patient presents for follow up on RA/PMR and labs review, last seen on 05/18/2024. Allergies lisinopril Allergy (Mild, Verified 07/13/24 11:28) Cough Medication List - Last Reconciled 07/13/24 by Evelyn Brown MD aspirin 81 mg PO DAILY atorvastatin 40 mg every other day due to joint pain orally daily; capsaicin 0.1% appl topical clopidogrel 75 mg PO DAILY fluticasone propionate 50 mcg/actuation 1 spray intranasal DAILY folic acid 1 mg PO DAILY gabapentin 300 mg PO DAILY metformin 1,000 mg PO BID metoprolol succinate ER 12.5 mg PO BID omega 5-ajh-ldi-fish oil 300 mg (120 mg- 180mg)-1,000 mg caps PO prednisone Take 3 tabs daily for 3 weeks then remain on 2 tabs daily semaglutide (Ozempic) mg subcut HPI Comments Details: Patient returns for 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 He is on prednisone 2 mg daily. He states that he is doing well overall except for some pain and stiffness in his wrists, knuckles and fingers in the morning. He uses Voltaren gel with improvement. Doing well otherwise Initial history by Dr. Knowles: The patient presents with his daughter who helps translate. In February the patient underwent triple bypass surgery for his coronary artery disease. That went well but in early April he developed widespread pains. These included pains in the shoulders, hands, wrists, hips, and knees. There is about 3 hours of morning stiffness and that makes it difficult to get up out of bed. He notes swelling in the fingers and the wrists. He had an ultrasound of the leg documented a right popliteal cyst. Last week he had nerve conduction studies showing bilateral moderately severe carpal tunnel syndrome. He takes acetaminophen for symptoms without much improvement. He has been advised against the use of NSAIDs by Cardiology. There was a brief course of prednisone in the summer but he does not recall if it improved things much. He did recently receive a right shoulder corticosteroid injection. After 3 days he did have some overall improvement in his shoulder and other joints but symptoms reverted back to baseline again in another 24 hours. He has had some blood work in this laboratory as well as at [place]. [facility] Medical History Polymyalgia rheumatica Type 2 diabetes mellitus without complication Hyperlipidemia, unspecified Arthritis Carpal tunnel syndrome DJD of right shoulder Surgical History S/P triple vessel bypass Family History Daughter Arthritis Brother No problems noted. 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 Reports arthralgias, Denies joint swelling and Reports stiffness Physical Exam Vital Signs: BMI result Body Mass Index 23.0 Const General: cooperative, healthy appearing and comfortable Nutritional Appearance: average body habitus Orientation/consciousness: patient oriented x3 Limitations: no limitations HEENT Head: Yes normocephalic and Yes atraumatic Mouth: moist mucous membranes Resp Effort & Inspection: normal respiratory effort and able to speak in complete sentences Cardio Rate: regular rate Rhythm: regular rhythm Skin General skin exam: no rashes or lesions noted Neuro General: patient oriented x3 Extrem Other: Osteoarthritic changes of both hands Bilateral wrist pain with full flexion and extension Negative MCP squeeze test bilaterally No flexor tendon tenderness bilaterally 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 He is on prednisone 2 mg daily. Doing well overall except for mild pain and stiffness of his knuckles and wrists in the morning. There is family history of psoriasis. I think he has mild symptoms suggestive of seronegative RA. Discussed going back to methotrexate versus starting hydroxychloroquine. Discussed with patient and his daughter. Discussed risks and benefits of hydroxychloroquine. Start hydroxychloroquine 400 mg daily x5 days a week and 20 mg daily x2 days a week. Remain on prednisone 2 mg daily until next visit. Plan to taper Labs before next visit in 3 months (2) Long-term use of hydroxychloroquine: Code(s): Z79.899 - Other exterminator termite (current) drug therapy Category: Medical Plan: Discussed risk of retinopathy associated with hydroxychloroquine. Advised patient to make an appointment with doggy daycare activities director Plan I spent 30 minutes reviewing patient's chart, evaluating patient, ordering diagnostic workup, counseling patient and documenting in the chart Medications: New hydroxychloroquine Take 2 tabs a day x5 days a week and 1 tab a day x2 days a week 144 tabs 0RF Changed From prednisone Take 3 tabs daily for 3 weeks then remain on 2 tabs daily 147 tabs 0RF M06.00 - Rheumatoid arthritis without rheumatoid factor, unspecified site To prednisone 2 mg (2 x 1 mg) PO DAILY 180 tabs 0RF M06.00 - Rheumatoid arthritis without rheumatoid factor, unspecified site Coding Level of Care Code Est Pt Level 4 (73612) Diagnoses Polymyalgia rheumatica M35.3 Long-term use of hydroxychloroquine Z79.899
== END 2024-07-13 11:53 | disposition home or self-care (01) ==
PROVIDERS: PCP Internal Medicine; Visit Provider Student in an Organized Health Care Education/Training Program
DX: M35.3 Polymyalgia rheumatica (principal); Z79.899 Other long term (current) drug therapy
CPT/HCPCS: 99214

== ENCOUNTER → 2024-07-13 11:18 | Outpatient (BNVA) | payer OTHER, MEDICARE, SELFPAY | PROVIDERS: PCP Internal Medicine; Visit Provider Student in an Organized Health Care Education/Training Program | DX: M35.3 Polymyalgia rheumatica (principal); Z79.899 Other long term (current) drug therapy | CPT/HCPCS: 99212 ==

== ENCOUNTER 2024-10-25 08:59 | Outpatient (AMB) | payer OTHER, MEDICARE, SELFPAY ==
--- NOTE | 2024-10-25 09:22 | MHC.OFFVIS ---
Vital Signs 10/25/24 09:26 Height 5 ft 10 in Weight 162 lb 14.746 oz BMI 23.4 BP 134/72 Blood Pressure Location Rt brachial Position Sitting Pulse 88 Pulse Source Pulse Oximeter Pulse Oximetry (%) 98 Oxygen Delivery Method Room Air Intake Visit Reasons: PMR/RA Intake Note: Patient presents for PMR/RA. I stop taking Hydroxychloroquine on September 18 because every time I took it it upset my stomach and I vomit everything up. Allergies lisinopril Allergy (Mild, Verified 10/25/24 09:25) Cough hydroxychloroquine Adverse Reaction (Severe, Verified 10/25/24 09:52) Vomiting Medication List - Last Reconciled 10/25/24 by Evelyn Brown MD aspirin 81 mg PO DAILY atorvastatin 40 mg every other day due to joint pain orally daily; capsaicin 0.1% appl topical clopidogrel 75 mg PO DAILY fluticasone propionate 50 mcg/actuation 1 spray intranasal DAILY folic acid 1 mg PO DAILY gabapentin 300 mg PO DAILY metformin 1,000 mg PO BID metoprolol succinate ER 12.5 mg PO BID omega 7-bqp-umi-fish oil 300 mg (120 mg- 180mg)-1,000 mg caps PO semaglutide (Ozempic) mg subcut HPI Comments Details: Patient returns for follow-up for seronegative RA/PMR. He started taking hydroxychloroquine as prescribed last visit but he could not tolerate it due to significant vomiting. He lowered his prednisone to 1 mg a day for about a month then continued prednisone altogether since the beginning of September. He is much better overall. Denies any significant joint pain, swelling or stiffness. He states that he continues to have rare knee pains, usually with weather change. Initial history by Dr. Knowles: The patient presents with his daughter who helps translate. In February the patient underwent triple bypass surgery for his coronary artery disease. That went well but in early April he developed widespread pains. These included pains in the shoulders, hands, wrists, hips, and knees. There is about 3 hours of morning stiffness and that makes it difficult to get up out of bed. He notes swelling in the fingers and the wrists. He had an ultrasound of the leg documented a right popliteal cyst. Last week he had nerve conduction studies showing bilateral moderately severe carpal tunnel syndrome. He takes acetaminophen for symptoms without much improvement. He has been advised against the use of NSAIDs by Cardiology. There was a brief course of prednisone in the summer but he does not recall if it improved things much. He did recently receive a right shoulder corticosteroid injection. After 3 days he did have some overall improvement in his shoulder and other joints but symptoms reverted back to baseline again in another 24 hours. He has had some blood work in this laboratory as well as at [place] Medical History Polymyalgia rheumatica Type 2 diabetes mellitus without complication Hyperlipidemia, unspecified Arthritis Carpal tunnel syndrome DJD of right shoulder Surgical History S/P triple vessel bypass Family History Daughter Arthritis Brother No problems noted. 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 [employer] Reports arthralgias and Denies joint swelling Physical Exam Vital Signs: Last Vital Signs Pulse 88 10/25/24 09:26 BP 134/72 10/25/24 09:26 Pulse Ox 98 10/25/24 09:26 Oxygen Delivery Method Room Air 10/25/24 09:26 BMI result Body Mass Index 23.4 Const General: cooperative, healthy appearing and comfortable Nutritional Appearance: average body habitus Orientation/consciousness: patient oriented x3 Limitations: no limitations HEENT Head: Yes normocephalic and Yes atraumatic Mouth: moist mucous membranes Resp Effort & Inspection: normal respiratory effort and able to speak in complete sentences Cardio Rate: regular rate Rhythm: regular rhythm Skin General skin exam: no rashes or lesions noted Neuro General: patient oriented x3 Extrem Other: Osteoarthritic changes of both hands No wrist, swelling, tenderness or pain with full flexion-extension bilaterally Negative MCP squeeze test bilaterally No flexor tendon tenderness bilaterally 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 He could not tolerate hydroxychloroquine due to vomiting. He self tapered and discontinued his prednisone. Today is doing very well with no active synovitis. Continue to monitor patient off DMARDs Labs before next visit in 6 months Plan I spent 15 minutes reviewing patient's chart, evaluating patient, ordering diagnostic workup, counseling patient and documenting in the chart Orders: Orders Erythrocyte Sedimentation Rate 6 Months M35.3 - Polymyalgia rheumatica Complete Blood Count Auto Diff 6 Months M35.3 - Polymyalgia rheumatica Comprehensive Met. Panel 6 Months M35.3 - Polymyalgia rheumatica C Reactive Protein 6 Months M35.3 - Polymyalgia rheumatica Medications: Discontinued prednisone Discontinued Reason: Patient Completed Course 2 mg (2 x 1 mg) PO DAILY 180 tabs 0RF M06.00 - Rheumatoid arthritis without rheumatoid factor, unspecified site hydroxychloroquine Discontinued Reason: Doctor's Order Take 2 tabs a day x5 days a week and 1 tab a day x2 days a week 144 tabs 0RF Coding Level of Care Code Est Pt Level 3 (87099) Diagnoses Polymyalgia rheumatica M35.3
[2024-10-25 09:26] VITALS: BP 134/72; PULSE 88; O2SAT 98; BMI 23.4
== END 2024-10-25 09:53 | disposition home or self-care (01) ==
PROVIDERS: PCP Internal Medicine; Visit Provider Student in an Organized Health Care Education/Training Program
DX: M35.3 Polymyalgia rheumatica (principal)
CPT/HCPCS: 99213

== ENCOUNTER → 2024-10-25 08:59 | Outpatient (BNVA) | payer OTHER, MEDICARE, SELFPAY | PROVIDERS: PCP Internal Medicine; Visit Provider Student in an Organized Health Care Education/Training Program | DX: M35.3 Polymyalgia rheumatica (principal) | CPT/HCPCS: 99212 ==

== ENCOUNTER 2025-05-08 10:29 | Outpatient (REF) | payer OTHER, SELFPAY ==
--- OUTSIDE RECORDS SUMMARY | 2025-05-08 11:30 | XMS_ITS | Clinical Summary ---
Author Organization [facility] Address [address] [place] [address] Care Team Providers Care School Community Relations Coordinator Name Role Phone Unavailable Primary Care Provider Unavailabl e Social History Tobacco Use Types Packs/Day Years Used Date Smoking Tobacco: Never Assessed Sex and Gender Information Value Date Recorded Sex Assigned at Not on file Gender Identity Not on file Sexual Orientation Not on file Plan of Treatment Health Maintenance Due Date Last Done Comments Hepatitis C Screening 1955 COVID-19 Vaccine (#1) 02/15/1958 Depression Screening 1969 Preventative Health Evaluation 1975 DTap / Tdap / Td (1 - Tdap) 1976 Colon Cancer Screening (Colonoscopy) 2002 Shingrix-Zoster Vaccine (1 of 2) 2007 Fall Risk Assessment 2022 Pneumococcal Vaccine (1 of 1 - PCV) 2022 Influenza Vaccine (#1) 2025 RSV Adult > 60+ Yrs or Pregn ant (1 - 1-dose 75+ series) 2032 Hepatitis B Vaccines Aged Out No long er eligible based on patient's age to complete this topic RSV Ped < 20 months Aged Out No longe r eligible based on patient's age to complete this topic
--- OUTSIDE RECORDS SUMMARY | 2025-05-08 11:30 | XMS_ITS | Clinical Summary ---
Author Organization [facility] Address [address] [place] [address] Care Team Providers Care Operations Planner Name Role Phone Pcp, No Primary Care Provider Unavailabl e Immunizations Immunization Administration Dates Next Due Covid-19 MRNA Vaccine - Pfizer 12+ (Purple Cap) 02/15/2021,01/25/2021 Social History Tobacco Use Types Packs/Day Years Used Date Smoking Tobacco: Never Assessed Sex and Gender Information Value Date Recorded Sex Assigned at Not on file Legal Sex Male 4:25 PM EDT Gender Identity Not on file Sexual Orientation Not on file Plan of Treatment Health Maintenance Due Date Last Done Comments Hepatitis C Virus Screening 1955 DTaP/Tdap/Td Vaccines (1 - Tdap) 1976 Colonoscopy 2002 Pneumococcal Vaccines 50+ (1 of 1 - PCV) 2007 Zoster (Shingles) Vaccine (1 of 2) 2007 COVID-19 Vaccine (3 - 2023-2 5 season) 2024 02/15/2021, 01/25/2021 Influenza Vaccine 05/19/2025 RSV Vaccine 60 years and older and Patients (1 - 1-dose 75+ series) 2032 Hepatitis B Vaccines Aged Out No long er eligible based on patient's age to complete this topic Insurance MISC [employer] MEDICARE OUT OF NETWORK on file Care Teams Operations Planner Relationship Specialty Start Date End Date Pcp, No [address] [place] [address] PCP - General 08/23/21
--- OUTSIDE RECORDS SUMMARY | 2025-05-08 11:30 | XMS_ITS | Clinical Summary ---
Author Organization [address] [facility] Address [address] [place] [phone] Phone Care Team Providers Care Certified Medical Asst Name Role Phone Shay Benitez MD Primary Care Provider [phone] Allergies Active Allergy Reactions Criticality Noted Date Comments Lisinopril 07/01/2016 cough Medications atorvastatin (LIPITOR) 80 mg tablet Take by mouth every other day. Take 0.5 Tablets 024 Active blood glucose control high,low (FreeStyle Control) solution continuously if needed. Use to calibrate the device 024 Active capsaicin cream (CAPZASIN-HP) 0.1 % cream cream Apply 1 Squirt topically 3 (three) times a day if needed. joint pains 024 Active cetirizine (ZyrTEC) 10 mg tablet Take 1 tablet (10 mg total) by mouth 1 (one) time each day if needed. Active cholecalciferol (VITAMIN D-3) 25 mcg (1,000 unit) capsule Take 1 capsule (1,000 Units total) by mouth 1 (one) time each day. Active folic acid (FOLVITE) 1 mg tablet Take 1 tablet (1,000 mcg total) by mouth 1 (one) time each day. Active FREESTYLE LANCETS MISC 1 Lancet by extracorporeal route 2 (two) times a day. TEST BLOOD SUGAR 023 Active gabapentin (NEURONTIN) 300 mg capsule Take 1 capsule (300 mg total) by mouth at bedtime as needed. FOR PAIN Active blood sugar diagnostic (FreeStyle Lite Strips) test strip 1 (one) time each day. Use to check BS 023 Active blood-glucose meter kit Use to test blood sugars 023 Active pen needle, diabetic 32 gauge x 5/32 needle 1 (one) time each day. Use with victoza. 022 Active magnesium glycinate 100 mg magnesium capsule Take 100 mg (1 capsule total) by mouth 1 (one) time each day. Active metFORMIN (GLUCOPHAGE) 1,000 mg tablet Take 1 tablet (1,000 mg total) by mouth 2 (two) times a day with meals. 180 tablet 1 025 Active zolpidem (AMBIEN) 10 mg tablet Take 1 tablet (10 mg total) by mouth at bedtime as needed for sleep. Active aspirin 81 mg chewable tablet Chew 1 tablet (81 mg total) 1 (one) time each day. 90 tablet 1 025 Active omega-3 acid ethyl esters (LOVAZA) 1 gram capsuleIndications:M ixed hyperglyceridemia Take 1 capsule (1 g total) by mouth 1 (one) time each day. 90 capsule 1 025 Active Ozempic 1 mg/dose (4 mg/3 mL) injection pen INJECT 1MG UNDER THE SKIN ONCE WEEKLY 3 mL 5 025 Active clopidogreL (PLAVIX) 75 mg tablet TAKE 1 TABLET BY MOUTH DAILY 90 tablet 025 Active metoprolol succinate (TOPROL-XL) 25 mg 24 hr tablet TAKE 1 TABLET BY MOUTH DAILY 90 tablet 1 025 Active fluticasone propionate (FLONASE) 50 mcg/actuation nasal spray SHAKE LIQUID AND USE 1 SPRAY IN EACH NOSTRIL DAILY 16 g 3 025 Active fluticasone propionate (FLONASE) 50 mcg/actuation nasal spray Administer 1 spray into each nostril 1 (one) time each day. 025 Active tiZANidine (ZANAFLEX) 4 mg tablet TAKE 1 TABLET(4 MG) BY MOUTH THREE TIMES DAILY NEEDED FOR MUSCLE SPASMS 30 tablet 025 Active Active Problems Problem Noted Date Diagnosed Date Rheumatoid arthritis with po sitive rheumatoid factor ([facility] [place] [facility] [place] 03/31/2024 Type 2 diabetes mellitus wit hout complication, without long-term current use of insulin ([facility] [place] [facility] V[facility]) 01/06/2023 Bilateral chronic knee pain 08/27/2021 Coronary artery disease invo lving [place] coronary artery of [place] heart with angina pectoris ([facility] [place]) 08/02/2018 Chest pain 07/12/2018 Anatomical narrow angle, bilateral 04/08/2017 Insomnia 03/03/2017 Lumbar radicular pain 11/05/2016 Fatty liver 08/19/2016 Diabetes mellitus, type 2 ([facility] [place] [facility] [place]) 02/25/2016 Essential hypertension 02/25/2016 Mixed hyperglyceridemia 02/25/2016 Encounters Date Type Department Care Team Description 03/30/2025 9:30 AM EDT Office Visit Internal Medicine - [facility] [address] [place] [phone] Shay Benitez MD Type 2 diabetes mellitus with other specified complication, with long-term current use of insulin ([facility] [place], [facility] V[facility]) (Primary Dx); Coronary artery disease involving [place] coronary artery of [place] heart with angina pectoris ([facility] V24); Essential hypertension from Last 3 Months Immunizations Name Administration Dates Next Due Influenza Quadravalent, MDCK , 0.5ml, preservative free (Flucelvax) 6mo and older 07/02/2023,08/27/2021,07/20/2020,06/23,2018 Influenza Quadravalent, MDCK , 0.5ml, with preservative (Flucelvax) 6mo and older 08/27/2017 Influenza trivalent, 0.5mL ( Fluad) 65yo and older 09/27/2024,08/19/2022 Influenza trivalent, 0.5mL, preservative free (Fluarix; FluLaval; Fluzone) ages 6mo and older (Afluria) 3 years and older 07/01/2016 UXCam SARS-CoV-2 COVID-19, mRNA, LNP-S, preservative free 09/23/2021,02/15/2021,01/25/2021 Pneumococcal conjugate 13 va lent (Prevnar 13, PCV13) 2mo and older 07/20/2020 Pneumococcal polysaccharide 23 valent (Pneumovax 23) 2yo and older 08/27/2021 Td Tetanus diptheria (Tdvax) 7yo and older 01/03/2003 Tdap Tetanus diptheria acell ular pertussis (Boostrix; Adacel) 7yo and older 07/01/2016,10/26/2012 Surgical History Surgery Date Site/Laterality Comments OTHER SURGICAL HISTORY PROCEDURE: [place] ARTHRODESIS ANTERIOR SPINAL DFRM 4-7 VRT SGM; COMMENT: lumbar SHOULDER SURGERY PROCEDURE: HISTORICAL SHOULDER SURGERY Medical History Medical History Date Comments Diabetes mellitus type 2, uncontrolled 02/25/2016 DX:Diabetes mellitus type 2, uncontrolled Hyperlipidemia 02/25/2016 DX:Hyperlipidemi a HTN (hypertension) 02/25/2016 DX:HTN (hyper tension) History of hematuria 08/19/2016 DX:History of hematuria; COMMENT: Dr Rosas 2005 Fatty liver 08/19/2016 DX:Fatty liver History of coronary artery disease DX:History of coronary artery disease Family History Medical History Relation Name Comments Heart attack Uncle Blindness Neg Hx Cataracts Neg Hx Glaucoma Neg Hx Macular degeneration Neg Hx Strabismus Neg Hx Relation Name Status Comments Brother Alive Father Mother Sister 1 Alive Sister 2 Alive Uncle Alive Social History Tobacco Use Types Packs/Day Years Used Date Smoking Tobacco: Former Cigarettes S tarted: 02/25/1996 Smokeless Tobacco: Never Alcohol Use Standard Drinks/Week Comments Not Currently 0 (1 standard drink = 0.6 oz pur e alcohol) Sex and Gender Information Value Date Recorded Sex Assigned at Not on file Legal Sex Male 3:48 PM EST Gender Identity Not on file Sexual Orientation Not on file Obstetrics History Last Filed Vital Signs Vital Sign Reading Time Taken Comments Blood Pressure 144/70 03/30/2025 9:31 AM EDT Pulse 70 03/30/2025 9:31 AM EDT Temperature 36.3 C (97.3 F) 12/22/2024 10:04 AM EST Respiratory Rate - - Oxygen Saturation 97% 12/22/2024 10:04 AM EST Inhaled Oxygen Concentration - - Weight 72.4 kg (159 lb 9.6 oz) 03/30/2025 9:31 A M EDT Height 177.8 cm (5' 10 ) 03/30/2025 9:31 AM EDT Body Mass Index 22.9 03/30/2025 9:31 AM EDT Plan of Treatment Upcoming Encounters Date Type Department Care Team (Late st Contact Info) Description 06/27/2025 9:45 AM EDT Office Visit Endocrinology [address] [phone] Racheal Jeffrey PA [address] [place] [id number] 09/29/2025 9:30 AM EST Office Visit Internal Medicine - [address] [phone] Shay Benitez MD [address] [place] [phone] Health Maintenance Due Date Last Done Comments Zoster Vaccines (1 of 2) 2007 Abdominal Aortic Aneurysm (AAA) Screen 09/27/2022 Colorectal Cancer Screening: Colonoscopy 09/27/2022 Falls Risk Assessment 09/27/2022 Hepatitis C Screening 09/27/2022 Social Influencers of Health Screening 09/27/2022 COVID-19 Vaccine ( season) 2024 09/23/2021, 02/15/2021, 01/25/2021 Medicare Annual Wellness Visit 07/02/2024 07/02/2023 Depression Screening 10/19/2024 Diabetes: Blood Sugar Control Test (HGBA1C) 03/28/2025 09/27/2024, 06/24/2024, 06/24/2024, Additional history exists Influenza Vaccine (#1) 2025 , 07/02/2023, 08/19/2022, Additional history exists Diabetes: Annual Foot Exam 06/24/2025 06/24/2024 Diabetes: Annual Retina Eye Exam 08/19/2025 08/19/2024, 11/25/2023 Diabetes: Annual Urine Albumin-Creatinine Ratio (uACR) 09/27/2025 09/27/2024, 06/24/2024 Diabetes: Annual GFR (Glomerular Filtration Rate) 03/30/2026 03/30/2025, 09/27/2024, 03/31/2024, Additional history exists Hypertension/CHF/CAD Annual BMP Blood Test 03/30/2026 03/30/2025, 09/27/2024, 03/31/2024, Additional history exists DTaP,Tdap,and Td Vaccines (4 - Td or Tdap) 07/01/2026 07/01/2016, 10/26/2012, 01/03/2003 Pneumococcal Vaccine: 50+ Years (3 of 3 - PCV20 or PCV21) 08/27/2026 08/27/2021, 07/20/2020, 12/11/2011 Cholesterol Screening (Lipid Panel) 03/30/2030 03/30/2025, 09/27/2024, 03/31/2024, Additional history exists RSV Immunization Adult Patients (1 - 1-dose 75+ series) 2032 HIB Vaccines Aged Out No longer eligi ble based on patient's age to complete this topic HPV Vaccines Aged Out No longer eligi ble based on patient's age to complete this topic Hepatitis A Vaccines Aged Out No long er eligible based on patient's age to complete this topic Hepatitis B Vaccines Aged Out No long er eligible based on patient's age to complete this topic IPV Vaccines Aged Out No longer eligi ble based on patient's age to complete this topic MMR Vaccines Aged Out No longer eligi ble based on patient's age to complete this topic Meningococcal ACWY Vaccine Aged Out N o longer eligible based on patient's age to complete this topic Meningococcal B Vaccine Aged Out No l onger eligible based on patient's age to complete this topic RSV Immunization Patients Under 20 months Aged Out No longer eligible based on patient's age to complete this topic Varicella Vaccines Aged Out No longer eligible based on patient's age to complete this topic Procedures Procedure Name Priority Date/Time Associated Diagnosis Comments ALANINE AMINOTRANSFERASE Routine 025 9:48 AM EDT Type 2 diabetes mellitus with other specified complication, with long-term current use of insulin ([facility] V24, [facility] V28) Coronary artery disease involving [place] coronary artery of [place] heart with angina pectoris ([facility] V24) ASPARTATE AMINOTRANSFERASE Routine 03/30/2025 9:48 AM EDT Type 2 diabetes mellitus with other specified complication, with long-term current use of insulin (CMS/HCC V24, CMS/HCC V28) Coronary artery disease involving [place] coronary artery of [place] heart with angina pectoris (CMS/HCC V24) BASIC METABOLIC PANEL Routine 03/30/2025 9:48 AM EDT Type 2 diabetes mellitus with other specified complication, with long-term current use of insulin (CMS/[facility] V24, CMS/[facility] V28) Coronary artery disease involving [place] coronary artery of [place] heart with angina pectoris (CMS/HCC V24) LIPID PANEL WITH REFLEX TO DIRECT LDL Routine 03/30/2025 9:48 AM EDT Type 2 diabetes mellitus with other specified complication, with long-term current use of insulin (CMS/[facility] V24, CMS/[facility] V28) Coronary artery disease involving [place] coronary artery of [place] heart with angina pectoris ([facility] V24) MICROALBUMIN CREATININE URINE RATIO Routine 09/27/2024 12:32 PM EST Diabetes mellitus, type 2 (CMS/HCC V24, CMS/HCC V28) HEMOGLOBIN A1C Routine 09/27/2024 12:32 PM EST Type 2 diabetes mellitus without complication, without long-term current use of insulin ([facility] V24, CMS/[facility] V28) EXTERNAL DIABETIC RETINA EYE EXAM Routine 08/19/2024 4:00 PM EDT DIABETES FOOT EXAM Routine 06/24/2024 from Last 3 Months or Most Recently Relevant to Health Maintenance Results * Lipid panel with reflex to direct LDL (03/30/2025 9:48 AM EDT) [facility] Cholesterol 145 0 - 200 mg/dL LAB CHEMISTRY METHOD 03/30/2025 12:28 PM EDT [facility] Triglycerides 77 0 - 150 mg/dL LAB CHEMISTRY METHOD 03/30/2025 12:28 PM EDT [facility] HDL 68 >=40 mg/dL LAB CHEMISTRY METHOD 03/30/2025 12:28 PM EDT [facility] LDL Calculated 62 0 - 100 mg/dL LAB CHEMISTRY METHOD 03/30/2025 12:28 PM EDT [facility] VLDL Cholesterol Yung 15.4 mg/dL LAB CHEMISTRY METHOD 03/30/2025 12:28 PM EDT [facility] Non HDL Chol. (LDL+VLDL) 77 <145 mg/dL LAB CHEMISTRY METHOD 03/30/2025 12:28 PM EDT [facility] Chol/HDL Ratio 2.1 0.0 - 4.4 LAB CHEMISTRY METHOD 03/30/2025 12:28 PM EDT [facility] Blood Venous blood specimen / Unknown Venipuncture / Unknown 03/30/2025 9:48 AM EDT 03/30/2025 9:48 AM EDT us Shay Benitez MD LAB BLOOD ORDERABLES Final Res ult [facility] [address] [place] [address], [place] [phone] * Alanine aminotransferase (03/30/2025 9:48 AM EDT) ALT (SGPT) 20 10 - 60 unit/L LAB CHEMISTRY METHOD 03/30/2025 12:27 PM EDT [facility] Blood Venous blood specimen / Unknown Venipuncture / Unknown 03/30/2025 9:48 AM EDT 03/30/2025 9:48 AM EDT us Shay Benitez MD LAB BLOOD ORDERABLES Final Res ult [facility] [address] [place] [address], [place] [phone] * Aspartate aminotransferase (03/30/2025 9:48 AM EDT) Pathologist [facility] AST (SGOT) 16 10 - 42 unit/L LAB CHEMISTRY METHOD 03/30/2025 12:27 PM [facility] Blood Venous blood specimen / Unknown Venipuncture / Unknown 03/30/2025 9:48 AM EDT 03/30/2025 9:48 AM EDT us Shay Benitez MD LAB BLOOD ORDERABLES Final Res ult [facility] [address] [place] [address], [place] [phone] * (ABNORMAL) Basic metabolic panel (03/30/2025 9:48 AM EDT) [facility] Sodium 134 133 - 145 mmol/L LAB CHEMISTRY METHOD 03/30/2025 12:27 PM [facility] Potassium 4.4 3.5 - 5.5 mmol/L LAB CHEMISTRY METHOD 03/30/2025 12:27 PM [facility] Chloride 100 96 - 110 mmol/L LAB CHEMISTRY METHOD 03/30/2025 12:27 PM [facility] CO2 26 21 - 32 mmol/L LAB CHEMISTRY METHOD 03/30/2025 12:27 PM [facility] Anion Gap 8 3 - 11 LAB CHEMISTRY METHOD 03/30/2025 12:27 PM [facility] Glucose 110(H) 70 - 100 mg/dL LAB CHEMISTRY METHOD 03/30/2025 12:27 PM [facility] BUN 16 5 - 25 mg/dL LAB CHEMISTRY METHOD 03/30/2025 12:27 PM [facility] Creatinine 0.93 0.70 - 1.30 mg/dL LAB CHEMISTRY METHOD 03/30/2025 12:27 PM EDT [facility] eGFR 90 >=60 mL/min/1. 73m2 LAB CHEMISTRY METHOD 03/30/2025 12:27 PM EDT [facility] Comment:Calculation based on the Chronic Kidney Disease Epidemiology Collaboration (CKD-EPI) equation refit without adjustment for race. BUN/Creatinine Ratio 17.2 LAB CHEMISTRY METHOD 03/30/2025 12:27 PM EDT [facility] Calcium 9.2 8.5 - 10.5 mg/dL LAB CHEMISTRY METHOD 03/30/2025 12:27 PM EDT [facility] Blood Venous blood specimen / Unknown Venipuncture / Unknown 03/30/2025 9:48 AM EDT 03/30/2025 9:48 AM EDT us Shay Benitez MD LAB BLOOD ORDERABLES Final Res ult Performing Organization Address [facility]/ZIP Co de Phone Number [facility] [address] [place] [address], [place] [phone] * Microalbumin creatinine urine ratio (09/27/2024 12:32 PM EST) Creatinine, Urine 118.0 mg/dL LAB CHEMISTRY METHOD 09/27/2024 8:52 PM EST [facility] Microalb, Ur 6.1 0.0 - 29.0 mg/L LAB CHEMISTRY METHOD 09/27/2024 8:52 PM EST [facility] Microalb/Creat Ratio 5 <30 mg/g creat LAB CHEMISTRY METHOD 09/27/2024 8:52 PM EST [facility] Urine Urine specimen obtained by clean catch procedure / Unknown Non-blood Collection / Unknown 09/27/2024 12:32 PM EST 09/27/2024 12:32 PM EST us Shay Benitez MD LAB URINE ORDERABLES Final Res ult Performing Organization Address City/[facility]/ZIP Co de Phone Number [facility] [address] [place] [address], [place] [phone] * (ABNORMAL) Hemoglobin A1c (09/27/2024 12:32 PM EST) [facility] Hemoglobin A1C 6.7(H) <6.5 % LAB CHEMISTRY METHOD 09/27/2024 6:56 PM EST [facility] Mean Bld Glu Estim. 146 mg/dL LAB CHEMISTRY METHOD 09/27/2024 6:56 PM EST [facility] Blood Venous blood specimen / Unknown Venipuncture / Unknown 09/27/2024 12:32 PM EST 09/27/2024 12:32 PM EST Shay Benitez MD LAB BLOOD ORDERABLES Final Res ult [facility] [address] [place] [address], [place] [phone] * External Diabetic Retina Eye Exam Report (08/19/2024 4:00 PM EDT) Anatomical Region Laterality Modality Ultrasound Historical Provider IMG US PROCEDURES Final R esult * Diabetes Foot Exam (06/24/2024) [facility] Diabetes: Annual Foot Exam abstracted Historical Provider HEALTH MAINTENANCE Final Result from Last 3 Months or Most Recently Relevant to Health Maintenance Insurance [facility] MEDICARE Member Subscriber Plan / Payer (Ef fective 2019-Present) Name:TIM BERNARD Relation to Subscriber:Self Name:Tim Bernard Payer ID:[id number] Group ID:[id number] Type:Not on file Address: [address] [place] [phone] Care Teams Certified Medical Asst Relationship Specialty Start Date End Date Shay Benitez MD [address] [place] [id number] PCP - General Internal Medicine 09/23/24
[2025-05-08 12:27] LABS: Baso%MD 0.3 %; Eos%MD 4.4 %; Hematocrit 41.2 % (42.0-52.0); Hemoglobin 13.7 g/dl (14.0-18.0); IG%MD 0.3 %; Lymph%MD 17.4 %; Mean Corpuscular HGB Conc 33.3 g/dl (31.0-36.0); Mean Corpuscular Hemoglobin 29.3 pg (27.0-33.0); Mean Corpuscular Volume 88.0 fL (80.0-98.0); Mono%MD 8.5 %; NRBC Abs Auto 0.000 X10*3/uL (0.0-0.012); NRBC Pct Auto 0.0 /100WBC (0.0-0.2); Neut%MD 69.1 %; Platelet Count 147 X10*3/uL (160-400); Red Blood Count 4.68 X10*6/uL (4.60-5.80); White Blood Count 7.5 X10*3/uL (4.8-10.8)
[2025-05-08 12:44] LABS: Alanine Aminotransferase 24 U/L (0-40); Albumin Level 4.5 g/dL (3.5-5.0); Alkaline Phosphatase 57 U/L (39-117); Anion Gap 13 (12-20); Aspartate Amino Transferase 26 U/L (5-37); Blood Urea Nitrogen 19 mg/dL (9-16); Calcium 9.3 mg/dL (8.4-10.2); Carbon Dioxide 24 mmol/L (22-29); Chloride 107 mmol/L (96-108); Estimated Glomerular Filt Rate > 60; Potassium 4.5 mmol/L (3.3-5.1); Sodium 139 mmol/L (135-145); Total Protein 7.0 g/dL (6.5-8.0)
[2025-05-08 14:02] LABS: Band Neutrophils Percent 2 % (3-5); Eosinophils Absolute Manual 0.2 X10*3/uL (0.0-0.4); Eosinophils Percent Manual 3 % (0-4); Lymphocytes Absolute Manual 1.1 X10*3/uL (1.2-4.9); Lymphocytes Percent Manual 14 % (20-40); Monocytes Absolute Manual 0.6 X10*3/uL (0.1-1.2); Monocytes Percent Manual 8 % (2-11); Neutrophils Absolute Manual 5.6 X10*3/uL (2.0-8.3); Neutrophils Percent Manual 73 % (45-73)
[2025-05-08 14:03] LABS: RBC Morphology NORMAL
== END 2025-05-08 10:30 | disposition home or self-care (01) ==
LOC: HO.10HDL 10:29
PROVIDERS: Visit Provider Student in an Organized Health Care Education/Training Program
DX: M35.3 Polymyalgia rheumatica (principal)
CPT/HCPCS: 36415; 80053; 85007; 85027; 85652; 86140

== ENCOUNTER 2025-05-10 08:48 | Outpatient (AMB) | payer OTHER, MEDICARE, SELFPAY ==
--- NOTE | 2025-05-10 08:49 | A.OFFVIS_ITS ---
Vital Signs 05/10/25 08:50 Height 5 ft 10 in Weight 159 lb 6.307 oz BMI 22.9 BP 130/72 Blood Pressure Location Lt brachial Position Sitting Pulse 78 Pulse Source Pulse Oximeter Pulse Oximetry (%) 98 Oxygen Delivery Method Room Air Intake Visit Reasons: PMR/RA Intake Note: Patient presents for PMR/RA and lab review today. Accompanied by: Daughter Allergies lisinopril Allergy (Mild, Verified 05/10/25 08:52) Cough hydroxychloroquine Adverse Reaction (Severe, Verified 05/10/25 08:52) Vomiting Medication List - Last Reconciled 05/10/25 by Kia Jean MD aspirin 81 mg PO DAILY atorvastatin 40 mg every other day due to joint pain orally daily; capsaicin 0.1% appl topical clopidogrel 75 mg PO DAILY esomeprazole magnesium 20 mg PO DAILY fluticasone propionate 50 mcg/actuation 1 spray intranasal DAILY folic acid 1 mg PO DAILY gabapentin 300 mg PO DAILY metformin 1,000 mg PO BID metoprolol succinate ER 12.5 mg PO BID omega [id number]-fish oil 300 mg (120 mg- 180mg)-1,000 mg caps PO semaglutide (Ozempic) mg subcut HPI Comments Details: Patient is a 69-year-old male with hypertension, hyperlipidemia, diabetes, polymyalgia rheumatica complicated by seronegative rheumatoid arthritis here today for follow up Interval History: Patient last seen 10/25/[address] Brown - could not tolerate hydroxychloroquine - stopped prednisone beginning of September - no active synovitis on exam and so plan was to follow up off DMARDs and prednisone Today - Doing well - No AM stiffness or joint pain Rheumatologic History: Dx 07/2023. PMR/seronegative RA Elevated ESR/CRP, myalgia and synovitis Prednisone taper 07/2023 - 09/2024 Hydroxychloroquine 09/2025. did not tolerate (vomiting) Initial history by Dr. Knowles: The patient presents with his daughter who helps translate. In February the patient underwent triple bypass surgery for his coronary artery disease. That went well but in early April he developed widespread pains. These included pains in the shoulders, hands, wrists, hips, and knees. There is about 3 hours of morning stiffness and that makes it difficult to get up out of bed. He notes swelling in the fingers and the wrists. He had an ultrasound of the leg documented a right popliteal cyst. Last week he had nerve conduction studies showing bilateral moderately severe carpal tunnel syndrome. He takes acetaminophen for symptoms without much improvement. He has been advised against the use of NSAIDs by Cardiology. There was a brief course of prednisone in the summer but he does not recall if it improved things much. He did recently receive a right shoulder corticosteroid injection. After 3 days he did have some overall improvement in his shoulder and other joints but symptoms reverted back to baseline again in another 24 hours. He has had some blood work in this laboratory as well as at [facility]. Current Rheumatology Medication(s): [facility] Medical History Polymyalgia rheumatica Type 2 diabetes mellitus without complication Hyperlipidemia, unspecified Arthritis Carpal tunnel syndrome DJD of right shoulder Surgical History S/P triple vessel bypass Family History Daughter Arthritis Brother No problems noted. 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 Const Details: Review of Systems Constitutional: Denies fever, chills, weight loss ENT: Denies vision changes, eye pain or eye redness, dental caries, dry mouth GI: Denies nausea, vomiting, diarrhea, abdominal pain, change in BM Pulm: Denies SOB, HAYS, hemoptysis, wheezing Cards: Denies chest pain, palpitations Skin: Denies Raynaud's, rash, nail changes, photosensitivity, POLITICAL ORGANIZER: Denies headaches, weakness, paresthesias, recurrent falls MSK: as per HPI All other systems reviewed and are unremarkable except noted above Physical Exam Exam Exam: Vital signs reviewed Physical Examination CONSTITUITIONAL Patient alert and cooperative. Well appearing and in no apparent painful distress HEENT Conjunctiva and sclera clear. No lymphadenopathy. CHEST/RESPIRATORY SYSTEM Normal respiratory effort and able to speak in complete sentences. Clear to auscultation bilaterally. No crackles, rales, rhonchi, wheezes heard. CARDIAC SYSTEM Regular rate and rhythm. S1 and S2 heard no murmurs. Radial pulses intact bilaterally MSK Hands * Right Hand: Able to make a fist. No swelling or tenderness to palpation of these joints. No deformities noted. * Left Hand: Able to make a fist. No swelling or tenderness to palpation of these joints. No deformities noted. * dystrophic nail changes Wrists * Right Wrist: Full ROM. 70 degrees of wrist flexion, 80 degrees of wrist extension. No swelling or TTP * Left Wrist: Full ROM. 70 degrees of wrist flexion, 80 degrees of wrist extension. No swelling or TTP Elbows * Right Elbow: Full ROM. No swelling or TTP. No TTP of the medial and lateral epicondyles * Left Elbow: Full ROM. No swelling or TTP. No TTP of the medial and lateral epicondyles Shoulders * Right shoulder: Full ROM. No swelling noted. No TTP of the AC joint, subacromial bursa or posterior shoulder * Left shoulder: Full ROM. No swelling noted. No TTP of the AC joint, subacromial bursa or posterior shoulder Knees * Right knee: Full ROM. No swelling noted. No TTP of the knee joint lie or pes anserine bursa * Left knee: Full ROM. No swelling noted. No TTP of the knee joint lie or pes anserine bursa. * Crepitations felt bilaterally Ankles * Right ankle: Good ankle dorsiflexion and plantar flexion. No swelling. No TTP of the ankle joint * Left ankle: Good ankle dorsiflexion and plantar flexion. No swelling. No TTP of the ankle joint Feet * Right foot: Negative squeeze test * Left foot: Negative squeeze test Tender points? * No tenderness to palpation of the bilateral trapezius, supraspinatus, anterior costochondral junctions, bilateral suboccipital muscle insertions SKIN No rashes Vital Signs: Last Vital Signs Pulse 78 05/10/25 08:50 BP 130/72 05/10/25 08:50 Pulse Ox 98 05/10/25 08:50 Oxygen Delivery Method Room Air 05/10/25 08:50 BMI result Body Mass Index 22.9 Results Reviewed Results Reviewed: Laboratory Tests 05/18/24 05/08/25 12:50 10:32 WBC 7.5 RBC 4.68 Hgb 13.7 L Hct 41.2 L Plt Count 182 147 L ESR 12 Sodium 139 Potassium 4.5 Chloride 107 Carbon Dioxide 24 BUN 19 H Creatinine 0.85 AST 26 ALT 24 C-Reactive Protein < 0.04 Rheumatology Labs 07/09/23 07/21/23 05/18/24 11:30 09:35 12:50 Rheumatoid Factor < 13.0 Cycl Citrul Peptide IgG <16 LESLIE Screen POSITIVE A LESLIE Titer 1:40 H Sm (Crockett) Antibody <1.0 NEG SM/CARTON FORMING MACHINE HELPER IgG Antibody <1.0 NEG Double Strand DNA Ab <1 HLA-B27 Negative XR Hands, Knee and Shoulders 06/2023 FINDINGS: Right shoulder: No fracture or malalignment. Mild glenohumeral osteoarthritis. No suspicious bone lesion or soft tissue calcification. Left shoulder: No fracture or malalignment. Moderate glenohumeral and mild acromioclavicular osteoarthritis. No suspicious bone lesion or soft tissue calcification. Right knee: No fracture. Mild medial compartment osteoarthritis. No joint effusion. Left knee: No significant joint space narrowing. Faint meniscal chondrocalcinosis. Mild patellofemoral compartment osteoarthritis. There is a moderate joint effusion. Right hand: No fracture or malalignment. 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 Mild osteoarthritis of the 1st CMC joint, the 2nd and 3rd MCP joints, and the interphalangeal joints. No periarticular osteopenia, erosions, or suspicious soft tissue calcifications. Left hand: No fracture or malalignment. 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 Mild osteoarthritis of the 1st CMC joint, the 2nd and 3rd MCP joints, and the interphalangeal joints. No periarticular osteopenia, erosions, or suspicious soft tissue calcifications. IMPRESSION: No acute abnormality of the shoulders, knees, or hands. Mild to moderate degenerative findings of both shoulders and both knees as described. There is a moderate left knee joint effusion. 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 Assessment & Plan Assessment & Plan (1) Polymyalgia rheumatica: Comment: Dx 07/2023. PMR/seronegative RA Elevated ESR/CRP, myalgia and synovitis Prednisone taper 07/2023 - 09/2024 Hydroxychloroquine 09/2025. did not tolerate (vomiting) Code(s): M35.3 - Polymyalgia rheumatica Category: Medical Plan: #PMR Patient is a 69-year-old male with PMR/seronegative rheumatoid arthritis here today for follow up. Currently not on any DMARDs or any steroids. Doing well without any signs or symptoms of synovitis or any complaints concerning for active disease. We will continue to monitor off DMARDs Plan - Continue to monitor off DMARDs - RTC 6 months - Labs before visit: CBC, CMP, ESR, CRP (2) Seronegative rheumatoid arthritis: Comment: Dx 07/2023. PMR/seronegative RA Elevated ESR/CRP, myalgia and synovitis Prednisone taper 07/2023 - 09/2024 Hydroxychloroquine 09/2025. did not tolerate (vomiting) Code(s): M06.00 - Rheumatoid arthritis without rheumatoid factor, unspecified site Category: Medical Plan: #Seronegative RA Patient is a 69-year-old male with PMR/seronegative rheumatoid arthritis here today for follow up. Currently not on any DMARDs or any steroids. Doing well without any signs or symptoms of synovitis or any complaints concerning for active disease. We will continue to monitor off DMARDs Plan - Continue to monitor off DMARDs - RTC 6 months - Labs before visit: CBC, CMP, ESR, CRP (3) Thrombocytopenia: Code(s): D69.6 - Thrombocytopenia, unspecified Plan: #Isolated low platelets Mild thrombocytopenia noted on labs today. No gum bleeding or excess bleeding. We will continue to monitor. Of note patient is on aspirin Plan I spent 30 minutes reviewing the record and labs, taking a history, examining the patient, discussing the treatment plan, ordering diagnostic work up and documenting in the medical record Orders: Orders Complete Blood Count Auto Diff 6 Months M06.00 - Rheumatoid arthritis without rheumatoid factor, unspecified site, M35.3 - Polymyalgia rheumatica Comprehensive Met. Panel 6 Months M06.00 - Rheumatoid arthritis without rheumatoid factor, unspecified site, M35.3 - Polymyalgia rheumatica C Reactive Protein 6 Months M06.00 - Rheumatoid arthritis without rheumatoid factor, unspecified site, M35.3 - Polymyalgia rheumatica Erythrocyte Sedimentation Rate 6 Months M06.00 - Rheumatoid arthritis without rheumatoid factor, unspecified site, M35.3 - Polymyalgia rheumatica Coding Level of Care Code Est Pt Level 4 (70064) Complex EM visit Add On G2211 Diagnoses Polymyalgia rheumatica M35.3 Seronegative rheumatoid arthritis M06.00 Thrombocytopenia D69.6
[2025-05-10 08:50] VITALS: BP 130/72; PULSE 78; O2SAT 98; BMI 22.9
--- OUTSIDE RECORDS SUMMARY | 2025-05-10 09:09 | XMS_ITS | Clinical Summary ---
Author Organization [facility] Address [address] [place] [address] Care Team Providers Care [facility] Sander Name Role Phone Pcp, No Primary Care [...] OUT OF NETWORK on file Care Teams [facility] S[facility] Relationship Specialty Start Date End Date Pcp, No [address] [place] [address] PCP - General 08/23/21
--- OUTSIDE RECORDS SUMMARY | 2025-05-10 09:09 | XMS_ITS | Clinical Summary ---
Author Organization [address] [facility] Address [address] [place] [phone] Phone Care Team Providers Care Poll Watcher Name Role Phone Shay Benitez MD Primary Care Provider [phone] Allergies Active Allergy Reactions Criticality Noted Date [...] pain 08/27/2021 Coronary artery disease invo lving ewiiaapaayp coronary artery of ewiiaapaayp heart with angina pectoris ([facility] [...] Office Visit Internal [facility] [address] [facility] [place] [address] Shay Benitez MD Type 2 diabetes mellitus with other specified complication, with long-term current use of insulin ([facility] [place], [facility] V28) (Primary Dx); Coronary artery disease involving ewiiaapaayp coronary artery of ewiiaapaayp heart with angina pectoris ([facility] V24); Essential hypertension from Last 3 Months [...] older (Afluria) 3 years and older 07/01/2016 [employer] SARS-CoV-2 COVID-19, mRNA, LNP-S, preservative free 09/23/2021,02/15/2021,01/25/2021 Pneumococcal conjugate 13 va lent (Prevnar 13, PCV13) 2mo and older 07/20/2020 Pneumococcal polysaccharide 23 valent (Pneumovax 23) 2yo and older 08/27/2021 Td Tetanus diptheria (Tdvax) 7yo and older 01/03/2003 Tdap Tetanus diptheria acell ular pertussis (Boostrix; Adacel) 7yo and older 07/01/2016,10/26/2012 Surgical History Surgery Date Site/Laterality Comments OTHER SURGICAL HISTORY PROCEDURE: [place] ARTHRODESIS ANTERIOR SPINAL DFRM 4-7 VRT SGM; [...] 06/27/2025 9:45 AM EDT Office Visit Endocrinology [address] [phone] Racheal Jeffrey PA [address] [place] [phone] 09/29/2025 9:30 AM EST Office Visit Internal Medicine - [address] [phone] Shay Benitez MD [address] [place] [phone] Health Maintenance Due Date Last Done Comments [...] complication, with long-term current use of insulin ([facility] V24, [facility] V28) Coronary artery disease involving ewiiaapaayp coronary artery of ewiiaapaayp heart with angina pectoris ([facility] V24) ASPARTATE AMINOTRANSFERASE Routine 03/30/2025 9:48 AM EDT Type 2 diabetes mellitus with other specified complication, with long-term current use of insulin (CMS/HCC V24, CMS/HCC V28) Coronary artery disease involving ewiiaapaayp coronary artery of ewiiaapaayp heart with angina pectoris (CMS/HCC V24) BASIC METABOLIC PANEL Routine 03/30/2025 9:48 AM EDT Type 2 diabetes mellitus with other specified complication, with long-term current use of insulin ([facility] V24, [facility] V28) Coronary artery disease involving ewiiaapaayp coronary artery of ewiiaapaayp heart with angina pectoris (CMS/HCC V24) LIPID PANEL WITH REFLEX TO DIRECT LDL Routine 03/30/2025 9:48 AM EDT Type 2 diabetes mellitus with other specified complication, with long-term current use of insulin ([facility] V24, CMS/[facility] V28) Coronary artery disease involving ewiiaapaayp coronary artery of ewiiaapaayp heart with angina pectoris ([facility] V24) MICROALBUMIN CREATININE URINE RATIO Routine 09/27/2024 12:32 PM EST Diabetes mellitus, type 2 (CMS/HCC V24, CMS/HCC V28) HEMOGLOBIN A1C Routine 09/27/2024 12:32 PM EST Type 2 diabetes mellitus without complication, without long-term current use of insulin ([facility] V24, CMS/[facility] V28) EXTERNAL DIABETIC RETINA EYE EXAM Routine 08/19/2024 4:00 PM EDT DIABETES FOOT EXAM Routine 06/24/2024 from Last 3 Months or Most Recently Relevant to Health Maintenance Results * Lipid panel with reflex to direct LDL (03/30/2025 9:48 AM EDT) [facility] Cholesterol 145 0 - 200 mg/dL LAB CHEMISTRY METHOD 03/30/2025 12:28 PM EDT [facility] Triglycerides 77 0 - 150 mg/dL LAB CHEMISTRY METHOD 03/30/2025 12:28 PM EDT [facility] HDL 68 >=40 mg/dL LAB CHEMISTRY METHOD 03/30/2025 12:28 PM EDT [facility] LDL Calculated 62 0 - 100 mg/dL LAB CHEMISTRY METHOD 03/30/2025 12:28 PM EDT [facility] VLDL Cholesterol Yung 15.4 mg/dL LAB CHEMISTRY METHOD 03/30/2025 12:28 PM EDT [facility] Non HDL Chol. (LDL+VLDL) 77 <145 mg/dL LAB CHEMISTRY METHOD 03/30/2025 12:28 PM EDT [facility] Chol/HDL Ratio 2.1 0.0 - 4.4 LAB CHEMISTRY METHOD 03/30/2025 12:28 PM EDT [facility] Blood Venous blood specimen / Unknown Venipuncture / Unknown 03/30/2025 9:48 AM EDT 03/30/2025 9:48 AM EDT us Shay Benitez MD LAB BLOOD ORDERABLES Final Res ult [facility] [address] [place] [address], [place] [phone] * Alanine aminotransferase (03/30/2025 9:48 AM EDT) ALT (SGPT) 20 10 - 60 unit/L LAB CHEMISTRY METHOD 03/30/2025 12:27 PM EDT [facility] Blood Venous blood specimen / Unknown Venipuncture / Unknown 03/30/2025 9:48 AM EDT 03/30/2025 9:48 AM EDT us Shay Benitez MD LAB BLOOD ORDERABLES Final Res ult [facility] [address] [place] [address], [place] [phone] * Aspartate aminotransferase (03/30/2025 9:48 AM EDT) Pathologist [facility] AST (SGOT) 16 10 - 42 unit/L LAB CHEMISTRY METHOD 03/30/2025 12:27 PM [facility] Blood Venous blood specimen / Unknown Venipuncture / Unknown 03/30/2025 9:48 AM EDT 03/30/2025 9:48 AM EDT us Shay Benitez MD LAB BLOOD ORDERABLES Final Res ult [facility] [address] [place] [address], [place] [phone] * (ABNORMAL) Basic metabolic panel (03/30/2025 9:48 AM EDT) [facility] Sodium 134 133 - 145 mmol/L LAB CHEMISTRY METHOD 03/30/2025 12:27 PM [facility] Potassium 4.4 3.5 - 5.5 mmol/L LAB CHEMISTRY METHOD 03/30/2025 12:27 PM [facility] Chloride 100 96 - 110 mmol/L LAB CHEMISTRY METHOD 03/30/2025 12:27 PM [facility] CO2 26 21 - 32 mmol/L LAB CHEMISTRY METHOD 03/30/2025 12:27 PM [facility] Anion Gap 8 3 - 11 LAB CHEMISTRY METHOD 03/30/2025 12:27 PM [facility] Glucose 110(H) 70 - 100 mg/dL LAB CHEMISTRY METHOD 03/30/2025 12:27 PM [facility] BUN 16 5 - 25 mg/dL LAB CHEMISTRY METHOD 03/30/2025 12:27 PM [facility] Creatinine 0.93 0.70 - 1.30 mg/dL LAB CHEMISTRY METHOD 03/30/2025 12:27 PM EDT [facility] eGFR 90 >=60 mL/min/1. 73m2 LAB CHEMISTRY METHOD 03/30/2025 12:27 PM EDT [facility] Comment:Calculation based on the Chronic Kidney Disease Epidemiology Collaboration (CKD-EPI) equation refit without adjustment for race. BUN/Creatinine Ratio 17.2 LAB CHEMISTRY METHOD 03/30/2025 12:27 PM EDT [facility] Calcium 9.2 8.5 - 10.5 mg/dL LAB CHEMISTRY METHOD 03/30/2025 12:27 PM EDT [facility] Blood Venous blood specimen / Unknown Venipuncture / Unknown 03/30/2025 9:48 AM EDT 03/30/2025 9:48 AM EDT us Shay Benitez MD LAB BLOOD ORDERABLES Final Res ult Performing Organization Address [facility]/ZIP Co de Phone Number [facility] [address] [place] [address], [place] [phone] * Microalbumin creatinine urine ratio (09/27/2024 12:32 PM EST) Creatinine, Urine 118.0 mg/dL LAB CHEMISTRY METHOD 09/27/2024 8:52 PM EST [facility] Microalb, Ur 6.1 0.0 - 29.0 mg/L LAB CHEMISTRY METHOD 09/27/2024 8:52 PM EST [facility] Microalb/Creat Ratio 5 <30 mg/g creat LAB CHEMISTRY METHOD 09/27/2024 8:52 PM EST [facility] Urine Urine specimen obtained by clean catch procedure / Unknown Non-blood Collection / Unknown 09/27/2024 12:32 PM EST 09/27/2024 12:32 PM EST us Shay Benitez MD LAB URINE ORDERABLES Final Res ult Performing Organization Address City/[facility]/ZIP Co de Phone Number [facility] [address] [place] [address], [place] [phone] * (ABNORMAL) Hemoglobin A1c (09/27/2024 12:32 PM EST) [facility] Hemoglobin A1C 6.7(H) <6.5 % LAB CHEMISTRY METHOD 09/27/2024 6:56 PM EST [facility] Mean Bld Glu Estim. 146 mg/dL LAB CHEMISTRY METHOD 09/27/2024 6:56 PM EST [facility] Blood Venous blood specimen / Unknown Venipuncture / Unknown 09/27/2024 12:32 PM EST 09/27/2024 12:32 PM EST Shay Benitez MD LAB BLOOD ORDERABLES Final Res ult [facility] [address] [place] [address], [place] [phone] * External Diabetic Retina Eye Exam Report (08/19/2024 4:00 PM EDT) Anatomical Region Laterality Modality Ultrasound Historical Provider IMG US PROCEDURES Final R esult * Diabetes Foot Exam (06/24/2024) [facility] Diabetes: Annual Foot Exam abstracted Historical Provider HEALTH MAINTENANCE Final Result from Last 3 Months or Most Recently Relevant to Health Maintenance Insurance [facility] MEDIC[facility] Member Subscriber Plan / Payer (Ef fective 2019-Present) Name:TIM BERNARD Relation to Subscriber:Self Name:Tim Bernard Payer ID:[id number] Group ID:[id number] Type:Not on file Address: [address] [place] [id number] Care Teams Poll Watcher Relationship Specialty Start Date End Date Shay Benitez MD [address] [place] [phone] PCP - General Internal Medicine 09/23/24
--- OUTSIDE RECORDS SUMMARY | 2025-05-10 09:09 | XMS_ITS | Clinical Summary ---
Author Organization [facility] Address [address] [place] [address] Care Team Providers Care Instrument Repairer Steam Plant Name Role Phone Unavailable Primary Care Provider [...]
== END 2025-05-10 09:26 | disposition home or self-care (01) ==
LOC: HO.RHE 08:48
PROVIDERS: PCP Internal Medicine; Visit Provider Student in an Organized Health Care Education/Training Program
DX: M35.3 Polymyalgia rheumatica (principal); M06.00 Rheumatoid arthritis without rheumatoid factor, unspecified site; D69.6 Thrombocytopenia, unspecified
CPT/HCPCS: 99214; G2211

== ENCOUNTER → 2025-05-10 08:48 | Outpatient (BNVA) | payer OTHER, SELFPAY | PROVIDERS: PCP Internal Medicine; Visit Provider Student in an Organized Health Care Education/Training Program | DX: M35.3 Polymyalgia rheumatica (principal); M06.00 Rheumatoid arthritis without rheumatoid factor, unspecified site; D69.6 Thrombocytopenia, unspecified | CPT/HCPCS: 99212 ==